=== PATIENT | male | born 1970 | race Caucasian/White ===

== ENCOUNTER → 2016-06-12 | Outpatient (CLI) | payer BC ==
[2016-06-12 08:03] LABS: MEAN CORPUSCULAR HEMOGLOBIN 30.5 pg (27.0-33.0); MEAN CORPUSCULAR HGB CONC 33.8 g/dl (32.0-36.5); PLATELET COUNT, AUTOMATED 277 k/mm3 (150-450); RED CELL DISTRIBUTION WIDTH 12.9 % (11.5-14.5); WHITE BLOOD COUNT 8.6 K/mm3 (4.0-10.0)
[2016-06-12 08:06] LABS: LYMPH % 20.7 % (24.0-44.0); NEUTROPHILS % 64.3 % (36.0-66.0)
[2016-06-12 08:07] LABS: BASO # 0.1 K/mm3 (0.0-0.2); BASO % 0.7 % (0.0-1.0); EOS # 0.4 K/mm3 (0.0-0.50); EOS % 5.1 % (0.0-3.0); LARGE UNSTAINED CELL # 0.2 K/mm3 (0.0-0.4); LARGE UNSTAINED CELL % 2.2 % (0.0-4.0); LYMPH # 1.8 K/mm3 (1.5-4.5); MONO # 0.6 K/mm3 (0.0-0.8); MONO % 7.1 % (0.0-5.0); NEUTROPHILS # 5.5 K/mm3 (1.8-7.7)
[2016-06-12 08:24] LABS: ALBUMIN 3.6 GM/DL (3.2-5.2); ALBUMIN/GLOBULIN RATIO 1.06 (1.00-1.93); ALKALINE PHOSPHATASE 67 U/L (45-117); ALT/SGPT 36 U/L (12-78); ANION GAP 9 MEQ/L (8-16); AST/SGOT 20 U/L (15-37); BILIRUBIN,TOTAL 0.3 MG/DL (0.2-1.0); BLOOD UREA NITROGEN 18 MG/DL (7-18); CALCIUM LEVEL 8.7 MG/DL (8.5-10.1); CARBON DIOXIDE LEVEL 28 MEQ/L (21-32); CHLORIDE LEVEL 105 MEQ/L (98-107); CHOLESTEROL LEVEL 162 MG/DL (<200); CREATININE FOR GFR 1.07 MG/DL (0.70-1.30); GLOMERULAR FILTRATION RATE > 60.0 (>60); GLUCOSE, FASTING 88 MG/DL (70-105); SODIUM LEVEL 142 MEQ/L (136-145); TRIGLYCERIDES LEVEL 178 MG/DL (<150)
== END ==
LOC: M LAB 06:45
PROVIDERS: ATTEND Family Medicine
DX: E78.2 Mixed hyperlipidemia (principal); E11.40 Type 2 diabetes mellitus with diabetic neuropathy, unspecified

== ENCOUNTER → 2016-09-18 | Outpatient (CLI) | payer BC ==
[2016-09-18 07:34] LABS: ALBUMIN 3.7 GM/DL (3.2-5.2); ALBUMIN/GLOBULIN RATIO 1.09 (1.00-1.93); ALKALINE PHOSPHATASE 70 U/L (45-117); ALT/SGPT 46 U/L (12-78); ANION GAP 9 MEQ/L (8-16); AST/SGOT 23 U/L (15-37); BILIRUBIN,TOTAL 0.4 MG/DL (0.2-1.0); BLOOD UREA NITROGEN 22 MG/DL (7-18); CALCIUM LEVEL 9.2 MG/DL (8.5-10.1); CARBON DIOXIDE LEVEL 28 MEQ/L (21-32); CHLORIDE LEVEL 104 MEQ/L (98-107); CREATININE FOR GFR 1.06 MG/DL (0.70-1.30); GLOMERULAR FILTRATION RATE > 60.0 (>60); GLUCOSE, FASTING 61 MG/DL (70-105); POTASSIUM SERUM 4.1 MEQ/L (3.5-5.1); SODIUM LEVEL 141 MEQ/L (136-145); TOTAL PROTEIN 7.1 GM/DL (6.4-8.2)
== END ==
LOC: M LAB 06:09
PROVIDERS: ATTEND Physician Assistant
DX: E11.40 Type 2 diabetes mellitus with diabetic neuropathy, unspecified (principal)

== ENCOUNTER → 2016-12-19 | Outpatient (CLI) | payer BC ==
[2016-12-19 07:20] LABS: BASO % 0.6 % (0.0-1.0); EOS # 0.3 K/mm3 (0.0-0.50); EOS % 4.1 % (0.0-3.0); LARGE UNSTAINED CELL # 0.2 K/mm3 (0.0-0.4); LARGE UNSTAINED CELL % 2.8 % (0.0-4.0); LYMPH # 1.8 K/mm3 (1.5-4.5); LYMPH % 22.3 % (24.0-44.0); MEAN CORPUSCULAR HEMOGLOBIN 31.8 pg (27.0-33.0); MEAN CORPUSCULAR HGB CONC 35.2 g/dl (32.0-36.5); MEAN CORPUSCULAR VOLUME 90.3 fl (80.0-96.0); MONO # 0.5 K/mm3 (0.0-0.8); MONO % 5.7 % (0.0-5.0); NEUTROPHILS # 5.1 K/mm3 (1.8-7.7); NEUTROPHILS % 64.4 % (36.0-66.0); PLATELET COUNT, AUTOMATED 288 k/mm3 (150-450); WHITE BLOOD COUNT 7.9 K/mm3 (4.0-10.0)
[2016-12-19 07:31] LABS: ALBUMIN 3.8 GM/DL (3.2-5.2); ALBUMIN/GLOBULIN RATIO 1.06 (1.00-1.93); ALKALINE PHOSPHATASE 62 U/L (45-117); ALT/SGPT 66 U/L (12-78); ANION GAP 10 MEQ/L (8-16); AST/SGOT 28 U/L (15-37); BILIRUBIN,TOTAL 0.5 MG/DL (0.2-1.0); BLOOD UREA NITROGEN 24 MG/DL (7-18); CALCIUM LEVEL 9.6 MG/DL (8.5-10.1); CARBON DIOXIDE LEVEL 26 MEQ/L (21-32); CHLORIDE LEVEL 106 MEQ/L (98-107); CHOLESTEROL LEVEL 132 MG/DL (<200); CREATININE FOR GFR 1.08 MG/DL (0.70-1.30); GLOMERULAR FILTRATION RATE > 60.0 (>60); GLUCOSE, FASTING 135 MG/DL (70-105); POTASSIUM SERUM 4.2 MEQ/L (3.5-5.1); SODIUM LEVEL 142 MEQ/L (136-145); TOTAL PROTEIN 7.4 GM/DL (6.4-8.2); TRIGLYCERIDES LEVEL 171 MG/DL (<150)
== END ==
LOC: M LAB 06:43
PROVIDERS: ATTEND Family Medicine
DX: E11.40 Type 2 diabetes mellitus with diabetic neuropathy, unspecified (principal)

== ENCOUNTER → 2017-03-20 | Outpatient (CLI) | payer BC ==
[2017-03-20 08:17] LABS: ANION GAP 9 MEQ/L (8-16); BLOOD UREA NITROGEN 16 MG/DL (7-18); CALCIUM LEVEL 9.2 MG/DL (8.5-10.1); CARBON DIOXIDE LEVEL 27 MEQ/L (21-32); CHLORIDE LEVEL 105 MEQ/L (98-107); CREATININE FOR GFR 1.02 MG/DL (0.70-1.30); GLOMERULAR FILTRATION RATE > 60.0 (>60); GLUCOSE, FASTING 141 MG/DL (70-105); POTASSIUM SERUM 4.2 MEQ/L (3.5-5.1); SODIUM LEVEL 141 MEQ/L (136-145)
== END ==
LOC: M LAB 06:53
PROVIDERS: ATTEND Physician Assistant
DX: E11.40 Type 2 diabetes mellitus with diabetic neuropathy, unspecified (principal)

== ENCOUNTER → 2017-06-25 | Outpatient (CLI) | payer BC ==
[2017-06-25 08:01] LABS: BASO # 0.1 10^3/uL (0.0-0.2); BASO % 0.8 % (0.0-1.0); EOS # 0.3 10^3/uL (0.0-0.50); EOS % 3.9 % (0.0-3.0); HEMATOCRIT 47.6 % (42.0-52.0); HEMOGLOBIN 16.3 g/dl (14.0-18.0); IMMATURE GRANULOCYTE % 0.4 % (0-3.0); LYMPH # 2.1 10^3/uL (1.5-4.5); LYMPH % 26.6 % (24.0-44.0); MEAN CORPUSCULAR HEMOGLOBIN 30.5 pg (27.0-33.0); MEAN CORPUSCULAR HGB CONC 34.2 g/dl (32.0-36.5); MONO # 0.8 10^3/uL (0.0-0.8); MONO % 10.1 % (0.0-5.0); NEUTROPHILS # 4.6 10^3/uL (1.8-7.7); NEUTROPHILS % 58.2 % (36.0-66.0); PLATELET COUNT, AUTOMATED 310 10^3/uL (150-450); RED BLOOD COUNT 5.35 10^6/uL (4.30-6.10); RED CELL DISTRIBUTION WIDTH 12.6 % (11.5-14.5); WHITE BLOOD COUNT 7.9 10^3/uL (4.0-10.0)
[2017-06-25 08:17] LABS: ALBUMIN 4.1 GM/DL (3.2-5.2); ALBUMIN/GLOBULIN RATIO 1.17 (1.00-1.93); ALKALINE PHOSPHATASE 67 U/L (45-117); ALT/SGPT 87 U/L (12-78); ANION GAP 9 MEQ/L (8-16); AST/SGOT 40 U/L (7-37); BILIRUBIN,TOTAL 0.6 MG/DL (0.2-1.0); BLOOD UREA NITROGEN 19 MG/DL (7-18); CALCIUM LEVEL 9.4 MG/DL (8.5-10.1); CARBON DIOXIDE LEVEL 26 MEQ/L (21-32); CHLORIDE LEVEL 106 MEQ/L (98-107); CREATININE FOR GFR 1.04 MG/DL (0.70-1.30); GLOMERULAR FILTRATION RATE > 60.0 (>60); GLUCOSE, FASTING 161 MG/DL (70-100); POTASSIUM SERUM 4.4 MEQ/L (3.5-5.1); SODIUM LEVEL 141 MEQ/L (136-145); TOTAL PROTEIN 7.6 GM/DL (6.4-8.2)
[2017-06-25 08:24] LABS: MALB URINE SIEMENS 41.8 MG/L; MAU/CREAT RATIO 39.4 MCG/MG (0.0-30.0)
[2017-06-25 09:26] LABS: ESTIMATED AVERAGE GLUCOSE 180 MG/DL (60-110); HEMOGLOBIN A1c 7.9 %
== END ==
LOC: M LAB 06:31
DX: E11.40 Type 2 diabetes mellitus with diabetic neuropathy, unspecified (principal)
CPT/HCPCS: 80053

== ENCOUNTER → 2017-09-19 | Outpatient (CLI) | payer BC ==
[2017-09-19 08:31] LABS: ANION GAP 12 MEQ/L (8-16); BLOOD UREA NITROGEN 29 MG/DL (7-18); CALCIUM LEVEL 9.1 MG/DL (8.5-10.1); CARBON DIOXIDE LEVEL 24 MEQ/L (21-32); CHLORIDE LEVEL 105 MEQ/L (98-107); CREATININE FOR GFR 1.23 MG/DL (0.70-1.30); GLOMERULAR FILTRATION RATE > 60.0 (>60); GLUCOSE, FASTING 179 MG/DL (70-100); POTASSIUM SERUM 4.3 MEQ/L (3.5-5.1); SODIUM LEVEL 141 MEQ/L (136-145)
[2017-09-19 10:01] LABS: ESTIMATED AVERAGE GLUCOSE 186 MG/DL (60-110); HEMOGLOBIN A1c 8.1 %
== END ==
LOC: M LAB 06:42
DX: E11.40 Type 2 diabetes mellitus with diabetic neuropathy, unspecified (principal)
CPT/HCPCS: 83036

== ENCOUNTER → 2017-12-24 | Outpatient (CLI) | payer BC ==
[2017-12-24 07:34] LABS: ESTIMATED AVERAGE GLUCOSE 180 MG/DL (60-110); HEMOGLOBIN A1c 7.9 %
[2017-12-24 07:54] LABS: ALBUMIN/GLOBULIN RATIO 1.11 (1.00-1.93); ALKALINE PHOSPHATASE 62 U/L (45-117); ALT/SGPT 96 U/L (12-78); ANION GAP 11 MEQ/L (8-16); AST/SGOT 43 U/L (7-37); BILIRUBIN,TOTAL 0.4 MG/DL (0.2-1.0); BLOOD UREA NITROGEN 30 MG/DL (7-18); CALCIUM LEVEL 9.4 MG/DL (8.5-10.1); CARBON DIOXIDE LEVEL 24 MEQ/L (21-32); CHLORIDE LEVEL 107 MEQ/L (98-107); CREATININE FOR GFR 1.23 MG/DL (0.70-1.30); GLOMERULAR FILTRATION RATE > 60.0 (>60); GLUCOSE, FASTING 177 MG/DL (70-100); POTASSIUM SERUM 4.2 MEQ/L (3.5-5.1); SODIUM LEVEL 142 MEQ/L (136-145); TOTAL PROTEIN 7.6 GM/DL (6.4-8.2)
== END ==
LOC: M LAB 06:53
DX: E11.40 Type 2 diabetes mellitus with diabetic neuropathy, unspecified (principal)
CPT/HCPCS: 80053

== ENCOUNTER → 2018-03-21 | Outpatient (CLI) | payer BC ==
[2018-03-21 08:25] LABS: ALBUMIN 3.9 GM/DL (3.2-5.2); BILIRUBIN,TOTAL 0.4 MG/DL (0.2-1.0); CHOLESTEROL RISK RATIO 4.212 (<5); CREATININE FOR GFR 1.38 MG/DL (0.70-1.30); FREE T4 1.06 NG/DL (0.76-1.46); GLOMERULAR FILTRATION RATE 58.8 (>60); POTASSIUM SERUM 4.4 MEQ/L (3.5-5.1); THYROID STIMULATING HORMONE 1.33 uIU/ML (0.358-3.740); TOTAL PROTEIN 7.3 GM/DL (6.4-8.2)
[2018-03-21 12:05] LABS: HEMOGLOBIN A1c 8.6 %
== END ==
LOC: M LAB 06:42
PROVIDERS: ATTEND Physician Assistant
DX: E11.40 Type 2 diabetes mellitus with diabetic neuropathy, unspecified (principal); E78.2 Mixed hyperlipidemia

== ENCOUNTER → 2018-06-18 | Outpatient (CLI) | payer BC ==
[2018-06-18 07:23] LABS: BLOOD UREA NITROGEN 22 MG/DL (7-18); CALCIUM LEVEL 9.4 MG/DL (8.5-10.1); CARBON DIOXIDE LEVEL 26 MEQ/L (21-32); CHLORIDE LEVEL 103 MEQ/L (98-107); CREATININE FOR GFR 1.23 MG/DL (0.70-1.30); GLOMERULAR FILTRATION RATE > 60.0 (>60); GLUCOSE, FASTING 179 MG/DL (70-100); SODIUM LEVEL 139 MEQ/L (136-145)
[2018-06-18 07:40] LABS: HEMOGLOBIN A1c 7.7 %
== END ==
LOC: M LAB 06:29
PROVIDERS: ATTEND Physician Assistant
DX: E11.40 Type 2 diabetes mellitus with diabetic neuropathy, unspecified (principal)

== ENCOUNTER → 2018-09-23 | Outpatient (CLI) | payer BC ==
[2018-09-23 07:47] LABS: ALT/SGPT 84 U/L (12-78); BILIRUBIN,TOTAL 0.4 MG/DL (0.2-1.0); BLOOD UREA NITROGEN 23 MG/DL (7-18); CALCIUM LEVEL 9.7 MG/DL (8.5-10.1); CARBON DIOXIDE LEVEL 25 MEQ/L (21-32); CHLORIDE LEVEL 105 MEQ/L (98-107); CREATININE FOR GFR 1.21 MG/DL (0.70-1.30); GLOMERULAR FILTRATION RATE > 60.0 (>60); GLUCOSE, FASTING 203 MG/DL (70-100); POTASSIUM SERUM 4.3 MEQ/L (3.5-5.1); SODIUM LEVEL 141 MEQ/L (136-145); TOTAL PROTEIN 7.5 GM/DL (6.4-8.2)
[2018-09-23 07:52] LABS: CREATININE, URINE 90.2 MG/DL; MALB URINE SIEMENS 16.9 MG/L; MAU/CREAT RATIO 18.7 MCG/MG (0.0-30.0)
[2018-09-23 08:15] LABS: HEMOGLOBIN A1c 7.8 %
== END ==
LOC: M LAB 06:48
PROVIDERS: ATTEND Family Medicine
DX: E11.40 Type 2 diabetes mellitus with diabetic neuropathy, unspecified (principal)

== ENCOUNTER → 2018-12-24 | Outpatient (CLI) | payer BC ==
[2018-12-24 07:16] LABS: HEMOGLOBIN A1c 7.7 %
[2018-12-24 07:27] LABS: BLOOD UREA NITROGEN 23 MG/DL (7-18); CALCIUM LEVEL 9.9 MG/DL (8.5-10.1); CARBON DIOXIDE LEVEL 25 MEQ/L (21-32); CHLORIDE LEVEL 104 MEQ/L (98-107); CREATININE FOR GFR 1.18 MG/DL (0.70-1.30); GLOMERULAR FILTRATION RATE > 60.0 (>60); GLUCOSE, FASTING 176 MG/DL (70-100); POTASSIUM SERUM 4.2 MEQ/L (3.5-5.1); SODIUM LEVEL 139 MEQ/L (136-145)
== END ==
LOC: M LAB 06:31
PROVIDERS: ATTEND Physician Assistant
DX: E11.40 Type 2 diabetes mellitus with diabetic neuropathy, unspecified (principal)

== ENCOUNTER → 2019-03-30 | Outpatient (CLI) | payer BC ==
[2019-03-30 07:53] LABS: ALT/SGPT 124 U/L (12-78); BILIRUBIN,TOTAL 0.5 MG/DL (0.2-1.0); BLOOD UREA NITROGEN 21 MG/DL (7-18); CALCIUM LEVEL 9.5 MG/DL (8.5-10.1); CARBON DIOXIDE LEVEL 25 MEQ/L (21-32); CHLORIDE LEVEL 103 MEQ/L (98-107); CREATININE FOR GFR 1.23 MG/DL (0.70-1.30); GLOMERULAR FILTRATION RATE > 60.0 (>60); GLUCOSE, FASTING 165 MG/DL (70-100); POTASSIUM SERUM 3.9 MEQ/L (3.5-5.1); SODIUM LEVEL 138 MEQ/L (136-145); TOTAL PROTEIN 7.3 GM/DL (6.4-8.2)
[2019-03-30 10:15] LABS: HEMOGLOBIN A1c 8.1 %
== END ==
LOC: M LAB 06:30
PROVIDERS: ATTEND Family Medicine
DX: E11.40 Type 2 diabetes mellitus with diabetic neuropathy, unspecified (principal)

== ENCOUNTER → 2019-07-06 | Outpatient (CLI) | payer BC ==
[2019-07-06 07:21] LABS: HEMOGLOBIN A1c 8.2 %
[2019-07-06 07:31] LABS: ALT/SGPT 121 U/L (12-78); BILIRUBIN,TOTAL 0.7 MG/DL (0.2-1.0); BLOOD UREA NITROGEN 24 MG/DL (7-18); CALCIUM LEVEL 9.1 MG/DL (8.5-10.1); CARBON DIOXIDE LEVEL 24 MEQ/L (21-32); CHLORIDE LEVEL 106 MEQ/L (98-107); CHOLESTEROL LEVEL 144 MG/DL (<200); CHOLESTEROL RISK RATIO 3.891 (<5); CREATININE FOR GFR 1.14 MG/DL (0.70-1.30); FREE T4 1.09 NG/DL (0.76-1.46); GLOMERULAR FILTRATION RATE > 60.0 (>60); GLUCOSE, FASTING 157 MG/DL (70-100); HDL CHOLESTEROL 37 MG/DL (>40); LDL CHOLESTEROL 60 MG/DL (<100); NON-HDL-C 107 MG/DL; POTASSIUM SERUM 4.1 MEQ/L (3.5-5.1); SODIUM LEVEL 139 MEQ/L (136-145); TOTAL PROTEIN 7.3 GM/DL (6.4-8.2); TRIGLYCERIDES LEVEL 233 MG/DL (<150)
== END ==
LOC: M LAB 06:27
PROVIDERS: ATTEND Physician Assistant
DX: E11.40 Type 2 diabetes mellitus with diabetic neuropathy, unspecified (principal); E78.2 Mixed hyperlipidemia

== ENCOUNTER → 2019-10-06 | Outpatient (CLI) | payer BC ==
[2019-10-06 06:55] LABS: BASO # 0.1 10^3/uL (0.0-0.2); BASO % 0.7 % (0.0-1.0); EOS # 0.3 10^3/uL (0.0-0.5); EOS % 3.5 % (0.0-3.0); HEMATOCRIT 47.6 % (42.0-52.0); HEMOGLOBIN 16.4 g/dl (13.5-17.5); LYMPH # 2.3 10^3/uL (1.5-5.0); MEAN CORPUSCULAR HEMOGLOBIN 30.9 pg (27.0-33.0); MEAN CORPUSCULAR HGB CONC 34.5 g/dl (32.0-36.5); MEAN CORPUSCULAR VOLUME 89.8 fl (80.0-96.0); MONO # 0.8 10^3/uL (0.0-0.8); MONO % 10.1 % (0.0-5.0); NEUTROPHILS # 4.6 10^3/uL (1.5-8.5); NEUTROPHILS % 57.3 % (36.0-66.0); PLATELET COUNT, AUTOMATED 270 10^3/uL (150-450); WHITE BLOOD COUNT 8.1 10^3/uL (4.0-10.0)
[2019-10-06 07:11] LABS: HEMOGLOBIN A1c 8.1 %
[2019-10-06 07:26] LABS: ALBUMIN 3.9 GM/DL (3.2-5.2); ALT/SGPT 95 U/L (12-78); BILIRUBIN,TOTAL 0.3 MG/DL (0.2-1.0); BLOOD UREA NITROGEN 27 MG/DL (7-18); CALCIUM LEVEL 9.4 MG/DL (8.5-10.1); CARBON DIOXIDE LEVEL 25 MEQ/L (21-32); CHLORIDE LEVEL 105 MEQ/L (98-107); CHOLESTEROL LEVEL 161 MG/DL (<200); CHOLESTEROL RISK RATIO 4.735 (<5); CREATININE FOR GFR 1.25 MG/DL (0.70-1.30); GLOMERULAR FILTRATION RATE > 60.0 (>60); GLUCOSE, FASTING 197 MG/DL (70-100); HDL CHOLESTEROL 34 MG/DL (>40); LDL CHOLESTEROL 51 MG/DL (<100); NON-HDL-C 127 MG/DL; SODIUM LEVEL 139 MEQ/L (136-145); TOTAL PROTEIN 7.3 GM/DL (6.4-8.2); TRIGLYCERIDES LEVEL 382 MG/DL (<150)
[2019-10-06 07:37] LABS: CREATININE, URINE 82.3 MG/DL; MALB URINE SIEMENS 9.5 MG/L; MAU/CREAT RATIO 11.5 MCG/MG (0.0-30.0)
== END ==
LOC: M LAB 06:27
PROVIDERS: ATTEND Family Medicine
DX: E11.40 Type 2 diabetes mellitus with diabetic neuropathy, unspecified (principal); E78.2 Mixed hyperlipidemia

== ENCOUNTER → 2020-01-13 | Outpatient (CLI) | payer BC ==
[2020-01-13 08:28] LABS: BLOOD UREA NITROGEN 19 MG/DL (7-18); CALCIUM LEVEL 9.3 MG/DL (8.5-10.1); CARBON DIOXIDE LEVEL 26 MEQ/L (21-32); CHLORIDE LEVEL 104 MEQ/L (98-107); CREATININE FOR GFR 1.15 MG/DL (0.70-1.30); GLOMERULAR FILTRATION RATE > 60.0 (>60); GLUCOSE, FASTING 138 MG/DL (70-100); POTASSIUM SERUM 4.3 MEQ/L (3.5-5.1); SODIUM LEVEL 139 MEQ/L (136-145)
[2020-01-13 09:47] LABS: HEMOGLOBIN A1c 7.8 %
== END ==
LOC: M LAB 06:29
PROVIDERS: ATTEND Physician Assistant
DX: E11.40 Type 2 diabetes mellitus with diabetic neuropathy, unspecified (principal)

== ENCOUNTER → 2020-04-18 | Outpatient (CLI) | payer BC ==
[2020-04-18 07:02] LABS: BASO # 0.1 10^3/uL (0.0-0.2); BASO % 0.8 % (0.0-1.0); EOS # 0.3 10^3/uL (0.0-0.5); EOS % 3.2 % (0.0-3.0); HEMATOCRIT 49.7 % (42.0-52.0); HEMOGLOBIN 16.3 g/dl (13.5-17.5); LYMPH # 2.9 10^3/uL (1.5-5.0); LYMPH % 34.3 % (24.0-44.0); MEAN CORPUSCULAR HEMOGLOBIN 30.2 pg (27.0-33.0); MEAN CORPUSCULAR HGB CONC 32.8 g/dl (32.0-36.5); MEAN CORPUSCULAR VOLUME 92.2 fl (80.0-96.0); MONO # 0.9 10^3/uL (0.0-0.8); MONO % 10.4 % (0.0-5.0); NEUTROPHILS # 4.2 10^3/uL (1.5-8.5); NEUTROPHILS % 50.7 % (36.0-66.0); PLATELET COUNT, AUTOMATED 242 10^3/uL (150-450); RED BLOOD COUNT 5.39 10^6/uL (4.30-6.10); WHITE BLOOD COUNT 8.4 10^3/uL (4.0-10.0)
[2020-04-18 07:15] LABS: HEMOGLOBIN A1c 8.8 %
[2020-04-18 07:30] LABS: ALT/SGPT 98 U/L (12-78); BILIRUBIN,TOTAL 0.5 MG/DL (0.2-1.0); BLOOD UREA NITROGEN 23 MG/DL (7-18); CALCIUM LEVEL 9.9 MG/DL (8.5-10.1); CARBON DIOXIDE LEVEL 26 MEQ/L (21-32); CHLORIDE LEVEL 104 MEQ/L (98-107); CREATININE FOR GFR 1.21 MG/DL (0.70-1.30); GLOMERULAR FILTRATION RATE > 60.0 (>60); GLUCOSE, FASTING 187 MG/DL (70-100); POTASSIUM SERUM 4.3 MEQ/L (3.5-5.1); SODIUM LEVEL 138 MEQ/L (136-145); TOTAL PROTEIN 7.2 GM/DL (6.4-8.2)
== END ==
LOC: M LAB 06:23
PROVIDERS: ATTEND Family Medicine
DX: E11.40 Type 2 diabetes mellitus with diabetic neuropathy, unspecified (principal)

== ENCOUNTER → 2020-08-05 | Outpatient (CLI) | payer BC ==
[2020-08-05 07:38] LABS: ALBUMIN 4.2 GM/DL (3.2-5.2); ALT/SGPT 104 U/L (12-78); BILIRUBIN,TOTAL 0.6 MG/DL (0.2-1.0); BLOOD UREA NITROGEN 20 MG/DL (7-18); CALCIUM LEVEL 10.3 MG/DL (8.5-10.1); CARBON DIOXIDE LEVEL 28 MEQ/L (21-32); CHLORIDE LEVEL 105 MEQ/L (98-107); CHOLESTEROL LEVEL 153 MG/DL (<200); CHOLESTEROL RISK RATIO 3.923 (<5); CREATININE FOR GFR 1.08 MG/DL (0.70-1.30); GLOMERULAR FILTRATION RATE > 60.0 (>60); GLUCOSE, FASTING 152 MG/DL (70-100); HDL CHOLESTEROL 39 MG/DL (>40); LDL CHOLESTEROL 59 MG/DL (<100); NON-HDL-C 114 MG/DL; POTASSIUM SERUM 4.3 MEQ/L (3.5-5.1); SODIUM LEVEL 139 MEQ/L (136-145); TOTAL PROTEIN 7.3 GM/DL (6.4-8.2); TRIGLYCERIDES LEVEL 276 MG/DL (<150)
[2020-08-05 07:40] LABS: HEMOGLOBIN A1c 7.7 %
== END ==
LOC: M LAB 06:17
PROVIDERS: ATTEND Physician Assistant
DX: E11.40 Type 2 diabetes mellitus with diabetic neuropathy, unspecified (principal)

== ENCOUNTER → 2020-08-23 | Outpatient (CLI) | payer BC ==
--- NOTE | 2020-08-23 08:53 | REP ---
INDICATION: ELEVATED LFT'S COMPARISON: None. TECHNIQUE: Real time gil scale ultrasound examination using curved array transducer. FINDINGS: Liver is mildly enlarged measuring 19.5 cm in craniocaudal length and increased in echotexture suggesting fatty infiltration. No focal hepatic lesion identified. The pancreas is incompletely evaluated but visualized portions appear normal. Gallbladder is normal and without gallstones, wall thickening, or pericholecystic fluid. No obvious biliary ductal dilatation is appreciated although the common bile duct is incompletely evaluated due to interposed bowel gas. The right kidney is normal in reniform shape without hydronephrosis and measures 13.6 x 7.7 x 7.0 cm. No ascites. IMPRESSION: Hepatomegaly and hepatosteatosis. <Electronically signed by Duran Jenkins > 08/23/20 0375
== END ==
LOC: M RAD 08:16
PROVIDERS: ATTEND Family Medicine
DX: R74.01 Elevation of levels of liver transaminase levels (principal); R16.0 Hepatomegaly, not elsewhere classified

== ENCOUNTER → 2020-11-02 | Outpatient (CLI) | payer BC ==
[2020-11-02 07:49] LABS: ALBUMIN 4.2 GM/DL (3.2-5.2); ALT/SGPT 86 U/L (12-78); BILIRUBIN,TOTAL 0.5 MG/DL (0.2-1.0); BLOOD UREA NITROGEN 19 MG/DL (7-18); CALCIUM LEVEL 9.6 MG/DL (8.5-10.1); CARBON DIOXIDE LEVEL 27 MEQ/L (21-32); CHLORIDE LEVEL 105 MEQ/L (98-107); CHOLESTEROL LEVEL 153 MG/DL (<200); CHOLESTEROL RISK RATIO 4.135 (<5); CREATININE FOR GFR 1.17 MG/DL (0.70-1.30); FREE T4 0.94 NG/DL (0.76-1.46); GLOMERULAR FILTRATION RATE > 60.0 (>60); GLUCOSE, FASTING 179 MG/DL (70-100); HDL CHOLESTEROL 37 MG/DL (>40); LDL CHOLESTEROL 50 MG/DL (<100); NON-HDL-C 116 MG/DL; POTASSIUM SERUM 4.2 MEQ/L (3.5-5.1); SODIUM LEVEL 141 MEQ/L (136-145); TOTAL PROTEIN 7.5 GM/DL (6.4-8.2); TRIGLYCERIDES LEVEL 329 MG/DL (<150)
[2020-11-02 08:04] LABS: PTH INTACT 33.1 PG/ML (18.5-88.0)
== END ==
LOC: M LAB 06:43
PROVIDERS: ATTEND Family Medicine
DX: E83.52 Hypercalcemia (principal); E78.2 Mixed hyperlipidemia; E11.40 Type 2 diabetes mellitus with diabetic neuropathy, unspecified

== ENCOUNTER 2021-01-25 07:56 | Emergency (ER) | payer BC ==
[~2021-01-25 07:56] MED LIST: EPINEPHrine 1MG/10ML SYRINGE 1.5IN ONE; SODIUM BICARBONATE 8.4% INJ 50MEQ 50 ML VIAL ONE
[2021-01-25] MEDS ORDERED: EPINEPHrine 1MG/10ML SYRINGE 1.5IN IV STA (08:00)
--- OUTSIDE RECORDS SUMMARY | 2021-01-25 08:01 | CCD | Continuity of Care Document ---
Author Author Tony TURCIOS [place] Organization Unknown Address [address] [facility] [address] [place] [address] Phone [phone] Care Team Providers Care Chief Digital Media Officer Name Role Phone Nedra Haywood D.O. AUTM Dominick Gaspar MD AUTM [phone] Problems Active Problems Provider Date Essential hypertension Nedra Haywood D.O. Onset: 11/2013 Pure hypercholesterolemia Nedra Haywood D.O. Onset: 03/09/2014 Type II diabetes mellitus uncontrolled Nedra Haywood D.O. Onset: 03/09/2014 Hyperlipidemia Nedra Haywood D.O. Onset: 2013 Allergic rhinitis Nedra Haywood D.O. Onset: 2013 Morbid obesity Nedra Haywood D.O. Onset: 2013 Obstructive sleep apnea syndrome Nedra Haywood D.O. Onset: 03/09/2014 Periodic limb movement disorder Nedra Haywood D.O. O nset: 03/09/2014 Disorder of nervous system due to diabetes mellitus Nedra Whitaker D.O. Onset: 03/09/2014 Chronic kidney disease stage 1 Nedra Haywood D.O. On set: 06/08/2014 Chronic kidney disease stage 3 Nedra Haywood D.O. On set: 06/08/2014 Disorder of magnesium metabolism Nedra Haywood D.O. Onset: 09/08/2014 Deficiency anemias Nedra Haywood D.O. Onset: 2014 Nonproliferative diabetic retinopathy Nedra Haywood D.O. Onset: 04/24/2015 Tubular adenoma Nedra Haywood D.O. Onset: 2015 Note: Colonoscopy 05/2014-Dr. Shannon Long-term current use of insulin Nedra Haywood D.O. Onset: 06/20/2015 Body mass index 40+ - severely obese Shaun Disla Onset: 06/20/2015 Mixed hyperlipidemia Nedra Haywood D.O. Onset: 06/19 Gastroesophageal reflux disease Nedra Haywood D.O. O nset: 06/20/2015 Social History Type Date Description Comments Sex Unknown ETOH Use Currently consumes alcohol 4 per week socially Tobacco Use Start: Unknown Patient has never smoked Recreational Drug Use Denies Drug Use Smoking Status Reviewed: 11/10/20 Patient has never smoked Exercise Type/Frequency Does not exercise Sun Exposure Uses sunscreen Seat Belt/Car Seat Always uses seat belt Allergies, Adverse Reactions, Alerts Description No Known Drug Allergies Medications Active Medications SIG Qnty Indications Ordering Provide r Date Ozempic (1 MG/Dose) 2mg/1.5ML Solution Pen-Inject Inject 1MG Under The Skin Once A Week 9units E11.40 Nedra Haywood D.O. 12/29/2018 Valsartan-Hydrochlorothiazide 320-25mg Tablets take one tablet by mouth every day 90tabs I12.9 Ilana LuongOJuan Carlos 03/06/2017 Novofine Plus 32G X 4 mm Misc Use With Lantus Pen Twice Daily 300units Ilana DislaO Juan Carlos 10/03/2016 Pen Turner 3/16" 31G X 5 mm Misc use with victoza daily 30units E11.40 Ilana DislaOJuan Carlos 03/22 BD Ultra-Fine Pen NDL [id number] Use With Lantus Pen Two Times A Day 1 00units Nedra Haywood D.O. 10/02/2015 Tresiba Flextouch 20 0Unit/ML Solution Pen-Inject Inject 124 Units Under The Skin Once Daily 54units E11.4 0 CASANDRA Cisneros 09/23/2015 Farxiga 10mg Tablets take one tablet by mouth every day 90tabs Shaun Disla.OJuan Carlos 03/16 Fexofenadine HCL 180mg Tablets take one tablet by mouth every day 90tabs Ilana DislaOJuan Carlos 03/04/2015 Magnesium Oxide 400(240Mg) mg Tabl ets 1 tab by mouth a day 30tabs 275.2 Ilana DislaOJuan Carlos Bdu Ultrafine Pen Turner use with lantus solostar pen twice a day 1Box Ilana DislaOJuan Carlos 03/09/2014 Aspirin 81mg Tablets 1 by mouth every day 30tabs Unknown Vitamin C 1000mg Tablets 1 po qd Unknown Multivitamins Capsules 1 by mouth every day 30caps Unknown Atorvastatin Calcium 10mg Tablets Take One Tablet By Mouth Every Evening 90tabs Nedra estevez, D.OJuan Carlos Metformin HCL 1000mg Tablets take one tablet by mouth every day with breakfast and dinner 180tabs Ilana GeorgeOJuan Carlos Famotidine 20mg Tablets take 1 by mouth twice daily. Unknown Immunizations Description No Information Available Vital Signs Date Vital Result Comment 11/10/2020 3:55pm BP Systolic 142 mmHg BP Diastolic 88 mmHg Height 71.5 inches 5'11.50" Weight 289.00 lb BMI (Body Mass Index) 39.7 kg/m2 Heart Rate 84 /min Respiratory Rate 18 /min Body Temperature 97.7 F O2 % BldC Oximetry 98 % [place] Body Weight 172 lb 08/09/2020 3:54pm BP Systolic 130 mmHg BP Diastolic 78 mmHg Height 71.5 inches 5'11.50" Weight 291.25 lb BMI (Body Mass Index) 40.1 kg/m2 Heart Rate 92 /min Respiratory Rate 18 /min Body Temperature 97.4 F O2 % BldC Oximetry 98 % [place] Body Weight 172 lb Results Test Acquired Date Facility Test Result H/L Range Note Laboratory test finding 11/02/[address] [address] [phone] PTH Intact 33.1 pg/mL Normal 18.5-88.0 Comprehensive Metabolic Profil 11/02/[address] [address] [phone] Glucose, Fasting 179 mg/dL High 70-100 Blood Urea Nitrogen 19 mg/dL High 7-18 Creatinine For GFR 1.17 mg/dL Normal 0.70-1.30 Glomerular Filtration Rate > 60.0 Normal >60 1 Sodium Level 141 mEq/L Normal 136-145 Potassium Serum 4.2 mEq/L Normal 3.5-5.1 Chloride Level 105 mEq/L Normal 98-107 Carbon Dioxide Level 27 mEq/L Normal 21-32 Anion Gap 9 mEq/L Normal 8-16 Calcium Level 9.6 mg/dL Normal 8.5-10.1 Ast/Sgot 38 U/L High 7-37 Alt/SGPT 86 U/L High 12-78 Alkaline Phosphatase 65 U/L Normal 45-117 Bilirubin,Total 0.5 mg/dL Normal 0.2-1.0 Total Protein 7.5 GM/DL Normal 6.4-8.2 Albumin 4.2 GM/DL Normal 3.2-5.2 Albumin/Globulin Ratio 1.3 Normal Lipid Panel 11/02/[address] [address] [phone] Triglycerides Level 329 mg/dL High <150 Cholesterol Level 153 mg/dL Normal <200 HDL Cholesterol 37 mg/dL Low >40 LDL Cholesterol 50 mg/dL Normal <100 Non-HDL-C 116 mg/dL Normal Cholesterol Risk Ratio 4.135 Normal <5 Hemoglobin A1c 11/02/[address] [address] [phone] Hemoglobin A1c 8.0 % Normal 2 Estimated Average Glucose 183 mg/dL High 60-110 FT4&TSH Panel 11/02/[address] [address] [phone] Thyroid Stimulating Hormone 1.640 uIU/ML Normal 0. 358-3.740 Free T4 0.94 ng/dL Normal 0.76-1.46 Laboratory test finding 11/02/[address] [address] [phone] Hepatitis C Antibody <pending> Laboratory test finding 11/02/[address] [address] [phone] Hepatitis A Antibody Igm <pending> Hepatitis A Igg <pending> Hemoglobin A1c 08/05/2020 [facility] Outpatient Testi ng (Registration) [address] [place] [address] [phone] Hemoglobin A1c 7.7 % Normal 3 Estimated Average Glucose 174 mg/dL High 60-110 Comprehensive Metabolic Profil 08/05/2020 [facility] Outpa tient Testing (Registration) [address] [place] [address] [phone] Glucose, Fasting 152 mg/dL High 70-100 Blood Urea Nitrogen 20 mg/dL High 7-18 Creatinine For GFR 1.08 mg/dL Normal 0.70-1.30 Glomerular Filtration Rate > 60.0 Normal >60 4 Sodium Level 139 mEq/L Normal 136-145 Potassium Serum 4.3 mEq/L Normal 3.5-5.1 Chloride Level 105 mEq/L Normal 98-107 Carbon Dioxide Level 28 mEq/L Normal 21-32 Anion Gap 6 mEq/L Low 8-16 Calcium Level 10.3 mg/dL High 8.5-10.1 Ast/Sgot 47 U/L High 7-37 Alt/SGPT 104 U/L High 12-78 Alkaline Phosphatase 59 U/L Normal 45-117 Bilirubin,Total 0.6 mg/dL Normal 0.2-1.0 Total Protein 7.3 GM/DL Normal 6.4-8.2 Albumin 4.2 GM/DL Normal 3.2-5.2 Albumin/Globulin Ratio 1.4 Normal Lipid Panel 08/05/2020 [facility] Outpatient Testi ng (Registration) [address] [place] [address] [phone] Triglycerides Level 276 mg/dL High <150 Cholesterol Level 153 mg/dL Normal <200 HDL Cholesterol 39 mg/dL Low >40 LDL Cholesterol 59 mg/dL Normal <100 Non-HDL-C 114 mg/dL Normal Cholesterol Risk Ratio 3.923 Normal <5 FT4&TSH Panel 08/05/2020 [facility] Outpatient Testi ng (Registration) [address] [place] [address] [phone] Thyroid Stimulating Hormone 1.290 uIU/ML Normal 0. 358-3.740 Free T4 1.00 ng/dL Normal 0.76-1.46 1 Units are mL/min/1.73 m2 Chronic Kidney Disease Staging per NKF: Stage I & II GFR >=60 Normal to Mildly Decreased Stage III GFR 30-59 Moderately Decreased Stage IV GFR 15-29 Severely Decreased Stage V GFR <15 Very Little GFR Left ESRD GFR <15 on OPERATION SHIFT SUPERVISOR 2 REFERENCE RANGES: <=5.6% NORMAL 5.7-6.4% SUGGESTS IMPAIRED GLUCOSE META BOLISM/PREDIABETIC >= 6.5% ABNORMAL 3 REFERENCE RANGES: <=5.6% NORMAL 5.7-6.4% SUGGESTS IMPAIRED GLUCOSE META BOLISM/PREDIABETIC >= 6.5% ABNORMAL 4 Units are mL/min/1.73 m2 Chronic Kidney Disease Staging per NKF: Stage I & II GFR >=60 Normal to Mildly Decreased Stage III GFR 30-59 Moderately Decreased Stage IV GFR 15-29 Severely Decreased Stage V GFR <15 Very Little GFR Left ESRD GFR <15 on OPERATION SHIFT SUPERVISOR Procedures Date Code Description Status 11/10/2020 87022 Office/Outpatient Established Mo d MDM 30-39 Min Completed 08/09/2020 84251 Office/Outpatient Established Mo d MDM 30-39 Min Completed Medical Devices Description No Information Available Encounters Type Date Location Provider Dx Diagnosis Office Visit 11/10/2020 4:00p [facility] CASANDRA Cisneros E11.40 Type 2 diabetes mellitus wit h diabetic neuropathy, unsp E78.2 Mixed hyperlipidemia K21.9 Gastro-esophageal reflux dis ease without esophagitis J30.9 Allergic rhinitis, unspecifi ed E66.01 Morbid (severe) obesity due to excess calories Z68.39 Body mass index [BMI] 39.0-3 9.9, adult Office Visit 08/09/2020 4:00p [facility] Nedra Haywood D.O. 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 E83.52 Hypercalcemia R74.01 Elevation of levels of liver transaminase levels Z68.41 Body mass index [BMI] 40.0-4 4.9, adult Assessments Date Code Description Provider 11/10/2020 E11.40 Type 2 diabetes mellitus with di abetic neuropathy, unspecifi CASANDRA Cisneros 11/10/2020 E78.2 Mixed hyperlipidemia CASANDRA Mcdermott 11/10/2020 K21.9 Gastro-esophageal reflux disease without esophagitis CASANDRA Cisneros 11/10/2020 J30.9 Allergic rhinitis, unspecified S CASANDRA Key 11/10/2020 E66.01 Morbid (severe) obesity due to e xcess calories CASANDRA Cisneros 11/10/2020 Z68.39 Body mass index [BMI] 39.0-39.9, adult CASANDRA Cisneros 08/09/2020 E11.40 Type 2 diabetes mellitus with di abetic neuropathy, unspecifi Nedra Khannano-Howard, D.O. 08/09/2020 E78.2 Mixed hyperlipidemia Nedra Abreuea no-Howard, D.O. 08/09/2020 K21.9 Gastro-esophageal reflux disease without esophagitis Nedra Abreueano-Howard, D.O. 08/09/2020 J30.9 Allergic rhinitis, unspecified J ill Pilo-Howard, D.O. 08/09/2020 E66.01 Morbid (severe) obesity due to e xcess calories Nedra Abreueano- Howard, D.O. 08/09/2020 Z79.899 Other intermediate (current) drug t herapy Nedra Abreueano-Howard, D.O. 08/09/2020 Z79.82 residential (current) use of aspir in Nedra Richard Haywood 08/09/2020 Z79.4 medical office technician (current) use of insul in Nedra Haywood D.O. 08/09/2020 E11.22 Type 2 diabetes mellitus with di abetic chronic kidney diseas Nedra Haywood D.O. 08/09/2020 E83.52 Hypercalcemia Nedra werner D.O. 08/09/2020 R74.01 Elevation of levels of liver tra nsaminase levels Nedra Haywood D.O. 08/09/2020 Z68.41 Body mass index [BMI]40.0-44.9, adult Nedra Haywood D.O. Plan of Treatment Future Appointment(s):* 02/01/2021 3:40 pm - Nedra Haywood D.O. at [facility] 11/10/2020 - CASANDRA Cisneros* E11.40 Type 2 diabetes mellitus with diabetic neuropathy, unspecifi* New Labs:* Basic Metabolic Profile, Scheduled: 02/10/21 * Hemoglobin A1c, Scheduled: 02/10/21 * Microalbumin Random, Scheduled: 02/10/21 * Comments:* Blood sugars are worse than they had been previously. Continue to make good dietary choices, and adjust your insulin accordingly. * E78.2 Mixed hyperlipidemia* Comments:* Continue atorvastatin as prescribed. * K21.9 Gastro-esophageal reflux disease without esophagitis* Comments:* Stable with your current regimen. * J30.9 Allergic rhinitis, unspecified* Comments:* Stable with current medication. * E66.01 Morbid (severe) obesity due to excess calories* Comments:* Continue to make good dietary choices, and we will discuss further at followup. * Z68.39 Body mass index [BMI] 39.0-39.9, adult Functional Status Description No Information Available Mental Status Description No Information Available Referrals Description No Information Available
--- OUTSIDE RECORDS SUMMARY | 2021-01-25 08:01 | CCD | Continuity of Care Document ---
Author Author Tony TURCIOS [place] Organization Unknown Address [address] [facility] [address] [place] [address] Phone [phone] Care Team Providers Care Art Conservator Name Role Phone Nedra Haywood D.O. AUTM Dominick Gaspar MD AUTM [phone] Problems Active Problems Provider Date Essential hypertension [...] 300units Ilana DislaO Juan Carlos 10/03/2016 Pen Raymond 3/16" 31G X 5 mm Misc use with victoza daily 30units E11.40 Ilana DislaOJuan Carlos 03/22 BD Ultra-Fine Pen NDL [id number] Use With Lantus Pen Two Times A Day 1 00units Nedra Haywood D.O. 10/02/2015 Tresiba Flextouch 20 0Unit/ML Solution Pen-Inject Inject 124 Units Under The Skin Once Daily 54units E11.4 0 CASANDAR Cisneros 09/23/2015 Farxiga 10mg Tablets take one tablet by mouth every day 90tabs Shaun Disla.OJuan Carlos 03/16 Fexofenadine HCL 180mg Tablets take one tablet by mouth every day 90tabs Ilana DislaOJuan Carlos 03/04/2015 Magnesium Oxide 400(240Mg) mg Tabl ets 1 tab by mouth a day 30tabs 275.2 Ilana DislaOJuan Carlos Bdu Ultrafine Pen Raymond use with lantus solostar pen twice a [...] F O2 % BldC Oximetry 98 % [place] Body Weight 172 lb 08/09/2020 3:54pm BP Systolic 130 mmHg BP Diastolic 78 mmHg Height 71.5 inches 5'11.50" Weight 291.25 lb BMI (Body Mass Index) 40.1 kg/m2 Heart Rate 92 /min Respiratory Rate 18 /min Body Temperature 97.4 F O2 % BldC Oximetry 98 % [place] Body Weight 172 lb Results Test Acquired Date Facility Test Result H/L Range Note Laboratory test finding 11/02/[address] [address] [phone] PTH Intact 33.1 pg/mL Normal 18.5-88.0 Comprehensive Metabolic Profil 11/02/[address] [address] [phone] Glucose, Fasting 179 mg/dL High 70-100 Blood [...] Albumin/Globulin Ratio 1.3 Normal Lipid Panel 11/02/[address] [address] [phone] Triglycerides Level 329 mg/dL High <150 Cholesterol Level 153 mg/dL Normal <200 HDL Cholesterol 37 mg/dL Low >40 LDL Cholesterol 50 mg/dL Normal <100 Non-HDL-C 116 mg/dL Normal Cholesterol Risk Ratio 4.135 Normal <5 Hemoglobin A1c 11/02/[address] [address] [phone] Hemoglobin A1c 8.0 % Normal 2 Estimated Average Glucose 183 mg/dL High 60-110 FT4&TSH Panel 11/02/[address] [address] [phone] Thyroid Stimulating Hormone 1.640 uIU/ML Normal 0. 358-3.740 Free T4 0.94 ng/dL Normal 0.76-1.46 Laboratory test finding 11/02/[address] [address] [phone] Hepatitis C Antibody <pending> Laboratory test finding 11/02/[address] [address] [phone] Hepatitis A Antibody Igm <pending> Hepatitis A Igg <pending> Hemoglobin A1c 08/05/2020 [facility] Outpatient Testi ng (Registration) [address] [place] [address] [phone] Hemoglobin A1c 7.7 % Normal 3 Estimated Average Glucose 174 mg/dL High 60-110 Comprehensive Metabolic Profil 08/05/2020 [facility] Outpa tient Testing (Registration) [address] [place] [address] [phone] Glucose, Fasting 152 mg/dL High 70-100 Blood [...] Albumin/Globulin Ratio 1.4 Normal Lipid Panel 08/05/2020 [facility] Outpatient Testi ng (Registration) [address] [place] [address] [phone] Triglycerides Level 276 mg/dL High <150 Cholesterol Level 153 mg/dL Normal <200 HDL Cholesterol 39 mg/dL Low >40 LDL Cholesterol 59 mg/dL Normal <100 Non-HDL-C 114 mg/dL Normal Cholesterol Risk Ratio 3.923 Normal <5 FT4&TSH Panel 08/05/2020 [facility] Outpatient Testi ng (Registration) [address] [place] [address] [phone] Thyroid Stimulating Hormone 1.290 uIU/ML Normal 0. 358-3.740 Free T4 1.00 ng/dL Normal 0.76-1.46 1 Units are mL/min/1.73 m2 Chronic Kidney Disease Staging per NKF: Stage I & II GFR >=60 Normal to Mildly Decreased Stage III GFR 30-59 Moderately Decreased Stage IV GFR 15-29 Severely Decreased Stage V GFR <15 Very Little GFR Left ESRD GFR <15 on PACKING TRACTOR MACHINE OPERATOR 2 REFERENCE RANGES: <=5.6% NORMAL 5.7-6.4% SUGGESTS [...] Little GFR Left ESRD GFR <15 on PACKING TRACTOR MACHINE OPERATOR Procedures Date Code Description Status 08/09/2020 09184 Office/Outpatient Established Mo d MDM 30-39 Min Completed Medical Devices Description No Information Available Encounters Type Date Location Provider Dx Diagnosis Office Visit 08/09/2020 4:00p [facility] Nedra Haywood D.O. 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 E83.52 Hypercalcemia R74.01 Elevation of levels of liver transaminase levels Z68.41 Body mass index [BMI] 40.0-4 4.9, adult Assessments Date Code Description Provider 11/10/2020 E11.40 Type 2 diabetes mellitus with di abetic neuropathy, unspecifi Ha Turcios, CASANDRA 11/10/2020 E78.2 Mixed hyperlipidemia Ha stewart, CASANDRA 11/10/2020 K21.9 Gastro-esophageal reflux disease without esophagitis Ha Turcios, CASANDRA 11/10/2020 J30.9 Allergic rhinitis, unspecified S christi Turcios, CASANDRA 11/10/2020 E66.01 Morbid (severe) obesity due to e xcess calories CASANDRA Cisneros 11/10/2020 Z68.39 Body mass index [BMI] 39.0-39.9, adult CASANDRA Cisneros 08/09/2020 E11.40 Type 2 diabetes mellitus with di abetic neuropathy, unspecifi Nedra Haywood, D.O. 08/09/2020 E78.2 Mixed hyperlipidemia Nedra Khanna noLois, D.O. 08/09/2020 K21.9 Gastro-esophageal reflux disease without esophagitis Nedra Haywood, D.O. 08/09/2020 J30.9 Allergic rhinitis, unspecified J carson Haywood, D.O. 08/09/2020 E66.01 Morbid (severe) obesity due to e xcess calories Nedra Lawrence, D.O. 08/09/2020 Z79.899 Other intermodal owner operator truck driver (current) drug t herapy Nedra Haywood, D.O. 08/09/2020 Z79.82 assisted (current) use of aspir in Nedra Daigle-Howard, D.O. 08/09/2020 Z79.4 assisted (current) use of insul in Nedra Haywood, D.O. 08/09/2020 E11.22 Type 2 diabetes mellitus with di abetic chronic kidney diseas Nedra Haywood, D.O. 08/09/2020 E83.52 Hypercalcemia Nedra werner, D.O. 08/09/2020 R74.01 Elevation of levels of liver tra nsaminase levels Nedragem Haywood D.O. 08/09/2020 Z68.41 Body mass index [BMI]40.0-44.9, adult Nedra Haywood D.O. Plan of Treatment Future Appointment(s):* 02/01/2021 3:40 pm - Nedra Haywood D.O. at [facility] 11/10/2020 - CASANDRA Cisneros* E11.40 Type 2 diabetes mellitus with diabetic neuropathy, unspecifi* New Labs:* Basic Metabolic Profile, Scheduled: 02/10/21 * Hemoglobin A1c, Scheduled: 02/10/21 * Comments:* Blood sugars are [...]
--- OUTSIDE RECORDS SUMMARY | 2021-01-25 08:02 | CCD ---
Author Author [facility] Organization [facility] Address Unknown Phone Unavailable Care Team Providers Care Mesh Worker Name Role Phone Kim, Ha PA Unavailable Unavailable Kim, Ha PA Unavailable Unavailable Kim, Ha PA Unavailable Unavailable Kim, Ha PA Unavailable Unavailable Kim, Ha PA Unavailable Unavailable Kim, Ha PA Unavailable Unavailable Kim, Ha PA Unavailable Unavailable Kim, Ha PA Unavailable Unavailable Kim, Ha PA Unavailable Unavailable Kim, Ha PA Unavailable Unavailable Kim, Ha PA Unavailable Unavailable Kim, Ha PA Unavailable Unavailable Kim, Ha PA Unavailable Unavailable Kim, Ha PA Unavailable Unavailable Kim, Ha PA Unavailable Unavailable Kim, Ha PA Unavailable Unavailable Kim, Ha PA Unavailable Unavailable Kim, Ha PA Unavailable Unavailable Kim, Ha PA Unavailable Unavailable Kim, Ha PA Unavailable Unavailable Kim, Ha PA Unavailable Unavailable Kim, Ha PA Unavailable Unavailable Kim, Ha PA Unavailable Unavailable Kim, Ha PA Unavailable Unavailable Kim, Ha PA Unavailable Unavailable Kim, Ha PA Unavailable Unavailable Kim, Ha PA Unavailable Unavailable Kim, Ha PA Unavailable Unavailable Kim, Ha PA Unavailable Unavailable Kim, Ha PA Unavailable Unavailable Kim, Ha PA Unavailable Unavailable Kim, Ha PA Unavailable Unavailable Kim, Ha PA Unavailable Unavailable Kim, Ha PA Unavailable Unavailable Kim, Ha PA Unavailable Unavailable Kim, Ha PA Unavailable Unavailable Kim, Ha PA Unavailable Unavailable Kim, Ha PA Unavailable Unavailable Kim, Ha PA Unavailable Unavailable Kim, Ha PA Unavailable Unavailable Kim, Ha PA Unavailable Unavailable Kim, Ha PA Unavailable Unavailable Kim, Ha PA Unavailable Unavailable Kim, Ha PA Unavailable Unavailable Kim, Ha PA Unavailable Unavailable Kim, Ha PA Unavailable Unavailable Kim, Ha PA Unavailable Unavailable Kim, Ha PA Unavailable Unavailable Kim, Ha PA Unavailable Unavailable Kim, Ha PA Unavailable Unavailable Kim, Ha PA Unavailable Unavailable Kim, Ha PA Unavailable Unavailable Kim, Ha PA Unavailable Unavailable Kim, Ha PA Unavailable Unavailable GEORGINA-KAMRYN, TALISHA DO Unavailable Unavailable GEORGINA-KAMRYN, TALISHA DO Unavailable Unavailable GEORGINA-KAMRYN, TALISHA DO Unavailable Unavailable GEORGINA-KAMRYN, TALISHA DO Unavailable Unavailable GEORGINA-KAMRYN, TALISHA DO Unavailable Unavailable GEORGINA-KAMRYN, TALISHA DO Unavailable Unavailable GEORGINA-KAMRYN, TALISHA DO Unavailable Unavailable GEORGINA-KAMRYN, TALISHA DO Unavailable Unavailable GEORGINA-KAMRYN, TALISHA DO Unavailable Unavailable GEORGINA-KAMRYN, TALISHA DO Unavailable Unavailable GEORGINA-KAMRYN, TALISHA DO Unavailable Unavailable GEORGINA-KAMRYN, TALISHA DO Unavailable Unavailable GEORGINA-KAMRYN, TALISHA DO Unavailable Unavailable GEORGINA-KAMRYN, TALISHA DO Unavailable Unavailable GEORGINA-KAMRYN, TALISHA DO Unavailable Unavailable GEORGINA-KAMRYN, TALISHA DO Unavailable Unavailable GEORGINA-KAMRYN, TALISHA DO Unavailable Unavailable GEORGINA-KAMRYN, TALISHA DO Unavailable Unavailable GEORGINA-KAMRYN, TALISHA DO Unavailable Unavailable GEORGINA-KAMRYN, TALISHA DO Unavailable Unavailable GEORGINA-KAMRYN, TALISHA DO Unavailable Unavailable GEORGINA-KAMRYN, TALISHA DO Unavailable Unavailable GEORGINA-KAMRYN, TALISHA DO Unavailable Unavailable GEORGINA-KAMRYN, TALISHA DO Unavailable Unavailable GEORGINA-KAMRYN, TALISHA DO Unavailable Unavailable GEORGINA-KAMRYN, TALISHA DO Unavailable Unavailable GEORGINA-KAMRYN, TALISHA DO Unavailable Unavailable GEORGINA-KAMRYN, TALISHA DO Unavailable Unavailable GEORGINA-KAMRYN, TALISHA DO Unavailable Unavailable GEORGINA-KAMRYN, TALISHA DO Unavailable Unavailable GEORGINA-KAMRYN, TALISHA DO Unavailable Unavailable GEORGINA-KAMRYN, TALISHA DO Unavailable Unavailable GEORGINA-KAMRYN, TALISHA DO Unavailable Unavailable GEORGINA-KAMRYN, TALISHA DO Unavailable Unavailable GEORGINA-KAMRYN, TALISHA DO Unavailable Unavailable GEORGINA-KAMRYN, TALISHA DO Unavailable Unavailable GEORGINA-KAMRYN, TALISHA DO Unavailable Unavailable GEORGINA-KAMRYN, TALISHA DO Unavailable Unavailable GEORGINA-KAMRYN, TALISHA DO Unavailable Unavailable GEORGINA-KAMRYN, TALISHA DO Unavailable Unavailable GEORGINA-KAMRYN, TALISHA DO Unavailable Unavailable GEORGINA-KAMRYN, TALISHA DO Unavailable Unavailable GEORGINA-KAMRYN, TALISHA DO Unavailable Unavailable GEORGINA-KAMRYN, TALISHA DO Unavailable Unavailable GEORGINA-KAMRYN, TALISHA DO Unavailable Unavailable GEORGINA-KAMRYN, TALISHA DO Unavailable Unavailable GEORGINA-KAMRYN, TALISHA DO Unavailable Unavailable GEORGINA-KAMRYN, TALISHA DO Unavailable Unavailable GEORGINA-KAMRYN, TALISHA DO Unavailable Unavailable GEORGINA-KAMRYN, TALISHA DO Unavailable Unavailable GEORGINA-KAMRYN, TALISHA DO Unavailable Unavailable GEORGINA-KAMRYN, TALISHA DO Unavailable Unavailable GEORGINA-KAMRYN, TALISHA DO Unavailable Unavailable GEORGINA-KAMRYN, TALISHA DO Unavailable Unavailable GEORGINA-KAMRYN, TALISHA DO Unavailable Unavailable GEORGINA-KAMRYN, TALISHA DO Unavailable Unavailable GEORGINA-KAMRYN, TALISHA DO Unavailable Unavailable GEORGINA-KAMRYN, TALISHA DO Unavailable Unavailable GEORGINA-KAMRYN, TALISHA DO Unavailable Unavailable GEORGINA-KAMRYN, TALISHA DO Unavailable Unavailable GEORGINA-KAMRYN, TALISHA DO Unavailable Unavailable GEORGINA-KAMRYN, TALISHA DO Unavailable Unavailable GEORGINA-KAMRYN, TALISHA DO Unavailable Unavailable GEORGINA-KAMRYN, TALISHA DO Unavailable Unavailable GEORIGNA-KAMRYN, TALISHA DO Unavailable Unavailable GEORGINA-KAMRYN, TALISHA DO Unavailable Unavailable GEORGINA-KAMRYN, TALISHA DO Unavailable Unavailable GEORGINA-KAMRYN, TALISHA DO Unavailable Unavailable GEORGINA-KAMRYN, TALISHA DO Unavailable Unavailable GEORGINA-KAMRYN, TALISHA DO Unavailable Unavailable GEORGINA-KAMRYN, TALISHA DO Unavailable Unavailable GEORGINA-KAMRYN, TALISHA DO Unavailable Unavailable GEORGINA-KAMRYN, TALISHA DO Unavailable Unavailable GEORGINA-KAMRYN, TALISHA DO Unavailable Unavailable GEORGINA-KAMRYN, TALISHA DO Unavailable Unavailable GEORGINA-KAMRYN, TALISHA DO Unavailable Unavailable GEORGINA-KAMRYN, TALISHA DO Unavailable Unavailable GEORGINA-KAMRYN, TALISHA DO Unavailable Unavailable GEORGINA-KAMRYN, TALISHA DO Unavailable Unavailable GEORGINA-KAMRYN, TALISHA DO Unavailable Unavailable GEORGINA-KAMRYN, TALISHA DO Unavailable Unavailable GEORGINA-KAMRYN, TALISHA DO Unavailable Unavailable GEORGINA-KAMRYN, TALISHA DO Unavailable Unavailable GEORGINA-KAMRYN, TALISHA DO Unavailable Unavailable Benitez Blackburn, Isaak Tan MD, FACS Unavailable Unavailable Benitez Blackburn, Isaak Tan MD, FACS Unavailable Unavailable Benitez Blackburn, Isaak Tan MD, FACS Unavailable Unavailable Benitez Blackburn, Isaak Tan MD, FACS Unavailable Unavailable Benitez Blackburn, Isaak Tan MD, FACS Unavailable Unavailable Benitez Blackburn, Isaak Tan MD, FACS Unavailable Unavailable Benitez Blackburn, Isaak Tan MD, FACS Unavailable Unavailable Benitez Blackburn, Isaak Tan MD, FACS Unavailable Unavailable Benitez Blackburn, Isaak Tan MD, FACS Unavailable Unavailable Benitez Blackburn, Isaak Tan MD, FACS Unavailable Unavailable Benitez Blackburn, Isaak Tan MD, FACS Unavailable Unavailable Benitez Blackburn, Isaak Tan MD, FACS Unavailable Unavailable Benitez Blackburn, Isaak Tan MD, FACS Unavailable Unavailable Benitez Blackburn, Isaak Tan MD, FACS Unavailable Unavailable Benitez Blackburn, Isaak Tan MD, FACS Unavailable Unavailable Benitez Blackburn, Isaak Tan MD, FACS Unavailable Unavailable Benitez Blackburn, Isaak Tan MD, FACS Unavailable Unavailable Benitez Blackburn, Isaak Tan MD, FACS Unavailable Unavailable Beintez Blackburn, Isaak Tan MD, FACS Unavailable Unavailable Benitez Blackburn, Isaak Tan MD, FACS Unavailable Unavailable Benitez Blackburn, Isaak Tan MD, FACS Unavailable Unavailable Benitez Blackburn, Isaak Tan MD, FACS Unavailable Unavailable Benitez Blackburn, Isaak Tan MD, FACS Unavailable Unavailable Benitez Blackburn, Isaak Tan MD, FACS Unavailable Unavailable Benitez Blackburn, Isaak Tan MD, FACS Unavailable Unavailable Benitez Blackburn, Isaak Tan MD, FACS Unavailable Unavailable Benitez Blackburn, Isaak Tan MD, FACS Unavailable Unavailable Benitez Blackburn, Isaak Tan MD, FACS Unavailable Unavailable Benitez Blackburn, Isaak Tan MD, FACS Unavailable Unavailable Benitez Blackburn, Isaak Tan MD, FACS Unavailable Unavailable Benitez Blackburn, Isaak Tan MD, FACS Unavailable Unavailable Benitez Blackburn, Isaak Tan MD, FACS Unavailable Unavailable Benitez Blackburn, Isaak Tan MD, FACS Unavailable Unavailable Benitez Blackburn, Isaak Tan MD, FACS Unavailable Unavailable Benitez Blackburn, Isaak Tan MD, FACS Unavailable Unavailable Benitez Blackburn, Isaak Tan MD, FACS Unavailable Unavailable Benitez Blackburn, Isaak Tan MD, FACS Unavailable Unavailable Benitez Blackburn, Isaak Tan MD, FACS Unavailable Unavailable Benitez Blackburn, Isaak Tan MD, FACS Unavailable Unavailable Re-disclosure Warning The records that you are about to access may contain information from federally-assisted alcohol or drug abuse programs. If such information is present, then the following federally mandated warning applies: This information has been disclosed to you from records protected by federal confidentiality rules (42 CFR part 2). The federal rules prohibit you from making any further disclosure of this information unless further disclosure is expressly permitted by the written consent of the person to whom it pertains or as otherwise permitted by 42 CFR part 2. A general authorization for the release of medical or other information is NOT sufficient for this purpose. The Federal rules restrict any use of the information to criminally investigate or prosecute any alcohol or drug abuse patient.The records that you are about to access may contain highly sensitive health information, the redisclosure of which is protected by Article 27-F of the [facility] Public Health law. If you continue you may have access to information: Regarding HIV / AIDS; Provided by facilities licensed or operated by the [facility] Office of Mental Health; or Provided by the [facility] Office for People With Developmental Disabilities. If such information is present, then the following [facility] mandated warning applies: This information has been disclosed to you from confidential records which are protected by state law. State law prohibits you from making any further disclosure of this information without the specific written consent of the person to whom it pertains, or as otherwise permitted by law. Any unauthorized further disclosure in violation of state law may result in a fine or long term sentence or both. A general authorization for the release of medical or other information is NOT sufficient authorization for further disc losure. Allergies and Adverse Reactions Type Description Substance Reaction Status Data Source(s ) Allergy to substance No Known Allergies No known allergies (situation ) GOVE (Dominick Blackburn MD [facility]) Family History Family Member Name Family Member Gender Family Member Status Date o f Status Description Data Source(s) Unknown Male Problem MEDENT ([facility] ) () Unknown Female Problem MEDENT ([facility]) Unknown Female Problem MEDENT ([facility]) Unknown Female Problem MEDENT ([facility]) Unknown Male Problem [facility] Encounters Encounter Providers Location Date Indications Data Source(s ) Outpatient Attender: Ha GUAJARDO [facility] 11/10/2020 04:00:00 PM EDT MEDENT ([facility]) Outpatient Attender: [facility]ALISHA [facility]ANS[facility] 08/09/2020 04:00:00 PM EDT MEDENT ([facility]) Outpatient Attender: Ha GUAJARDO [facility] 04/20/2020 02:40:00 PM EST MEDENT ([facility]) Outpatient Attender: TALISHA HANSEN [facility] 01/19/2020 03:40:00 PM EDT MEDENT ([facility]) <td ID="encounterTypeDescriptionID0">NEW PATIENT WITH REFERRAL</td><td>Dominick Gaspar MD, FACS</td><td>Dominick Gaspar MD [facility]</td><td>12/22/2019</td><td>9:12AM</td><td>10:04AM</td><td><content ID="encounterDiagnosisID0-0">Taking Medication For Diabetes Long-term Use of Insulin</content>, <content ID="encounterDiagnosisID0-1">Taking Medication For Diabetes Long-term Use of Oral Hypoglycemics</content>, <content ID="encounterDiagnosisID0-2">Dry Eye Syndrome</content>, <content ID="encounterDiagnosisID0-3">Vitreous Disorders Degeneration</content>, <content ID="encounterDiagnosisID0-4">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</content>, <content ID="encounterDiagnosisID0-5">Essential Hypertension</content>, <content ID="encounterDiagnosisID0-6">Retinopathy Hypertensive</content></td>Outpatient Attender: Dominick Blackburn MD, FACS Dominick Gaspar MD [facility] 12/22/2019 09:12:00 AM EDT - 12/22/2019 10:04:00 AM ED T Retinopathy HypertensiveEssential Hypertension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Vitreous Disorders DegenerationDry Eye SyndromeTaking Medication For Diabetes Long-term Use of Oral HypoglycemicsTaking Medication For Diabetes Long-term Use of Insulin DREW (Dominick Blackburn MD [facility]) Retinopathy Hypertensive Essential Hypertension Type 2 Diabetes with Diabetic Retinopath y Moderate Nonproliferative Vitreous Disorders Degeneration Dry Eye Syndrome Taking Medication For Diabetes Long-term Use of Oral Hypoglycemics Taking Medication For Diabetes Long-term Use of Insulin Immunizations Vaccine Date Status Description Data Source(s) COVID-19 VACCINE Pfizer 12/26/2020 12:00:00 AM EDT completed [facility] Vaccine Series Complete: YESThis Data wa s Submitted to [facility] Via [employer]. COVID-19 VACCINE Pfizer 04/12/2020 12:00:00 AM EST completed [facility] Vaccine Series Complete: YESThis Data wa s Submitted to [facility] [employer]. COVID-19 VACCINE Pfizer 03/22/2020 12:00:00 AM EST completed [facility] Vaccine Series Complete: NOThis Data was Submitted to [facility] Via [employer]. Medications Medication Brand Name Start Date Product Form Dose Route Admi nistrative Instructions Pharmacy Instructions Status Indications Reaction Description Data Source(s) 1,000 mg 01/16/2021 12:00:00 AM EDT tablet 180 TAKE ONE TABLET BY MOUTH EVERY DAY WITH BREAKFAST AND DINNER TAKE ONE TABLET BY MOUTH EVERY DAY WITH BREAKFAST AND DINNER SOLD: 01/19/2021 [facility] atorvastatin 10 MG Oral Tablet ATORVASTATIN CALCIUM 01/11/2021 1 2:00:00 AM EDT tablet 90 TAKE ONE TABLET BY MOUTH EVERY E VENING TAKE ONE TABLET BY MOUTH EVERY EVENING SOLD: 01/16/2021 [facility]-25 mg 01/11/2021 12:00:00 AM EDT tablet 90 TAKE ONE TABLET BY MOUTH EVERY DAY TAKE ONE TABLET BY MOUTH EVERY DAY SOLD: 01/16/2021 [facility] 10 mg 11/18/2020 12:00:00 AM EDT tablet 90 TAKE ONE TABLET BY MOUTH EVERY DAY TAKE ONE TABLET BY MOUTH EVERY DAY SOLD: 11/25/2020 [facility] 1 mg/dose (4 mg/3 mL) 10/20/2020 12:00:00 AM EDT pen injecto r 9 INJECT 1MG UNDER THE SKIN ONCE A WEEK INJECT 1MG UNDER THE SKIN ONCE A WEEK SOLD: 01/16/2021 [facility] 1 mg/dose (4 mg/3 mL) 10/20/2020 12:00:00 AM EDT pen injecto r 9 INJECT 1MG UNDER THE SKIN ONCE A WEEK INJECT 1MG UNDER THE SKIN ONCE A WEEK SOLD: 10/31/2020 [facility] 200 unit/mL (3 mL) 10/18/2020 12:00:00 AM EDT insulin pen 54 INJECT 124 UNITS UNDER THE SKIN ONCE DAILY INJECT 124 UNITS UNDER THE SKIN ONCE DAILY SOLD: 10/31/2020 [facility] 200 unit/mL (3 mL) 10/18/2020 12:00:00 AM EDT insulin pen 54 INJECT 124 UNITS UNDER THE SKIN ONCE DAILY INJECT 124 UNITS UNDER THE SKIN ONCE DAILY SOLD: 01/16/2021 [facility] 180 mg 08/12/2020 12:00:00 AM EDT tablet 90 TAKE ONE TABLET BY MOUTH EVERY DAY TAKE ONE TABLET BY MOUTH EVERY DAY SOLD: 08/12/2020 [facility] 180 mg 08/12/2020 12:00:00 AM EDT tablet 90 TAKE ONE TABLET BY MOUTH EVERY DAY TAKE ONE TABLET BY MOUTH EVERY DAY SOLD: 11/18/2020 [facility] atorvastatin 10 MG Oral Tablet ATORVASTATIN CALCIUM 07/14/2020 1 2:00:00 AM EDT tablet 90 TAKE ONE TABLET BY MOUTH EVERY E VENING TAKE ONE TABLET BY MOUTH EVERY EVENING SOLD: 10/17/2020 [facility] atorvastatin 10 MG Oral Tablet ATORVASTATIN CALCIUM 07/14/2020 1 2:00:00 AM EDT tablet 90 TAKE ONE TABLET BY MOUTH EVERY E VENING TAKE ONE TABLET BY MOUTH EVERY EVENING SOLD: 07/19/2020 [facility] 1 mg/dose (2 mg/1.5 mL) 04/21/2020 12:00:00 AM EST pen injec tor 9 INJECT 1MG UNDER THE SKIN ONCE A WEEK INJECT 1MG UNDER THE SKIN ONCE A WEEK SOLD: 08/12/2020 [facility] 1 mg/dose (2 mg/1.5 mL) 04/21/2020 12:00:00 AM EST pen injec tor 9 INJECT 1MG UNDER THE SKIN ONCE A WEEK INJECT 1MG UNDER THE SKIN ONCE A WEEK SOLD: 05/04/2020 [facility] 320-25 mg 04/21/2020 12:00:00 AM EST tablet 90 TAKE ONE TABLET BY MOUTH EVERY DAY TAKE ONE TABLET BY MOUTH EVERY DAY SOLD: 05/04/2020 [facility] 10 mg 04/21/2020 12:00:00 AM EST tablet 90 TAKE ONE TABLET BY MOUTH EVERY DAY TAKE ONE TABLET BY MOUTH EVERY DAY SOLD: 05/04/2020 [facility] 200 unit/mL (3 mL) 04/21/2020 12:00:00 AM EST insulin pen 54 INJECT 124 UNITS UNDER THE SKIN ONCE DAILY INJECT 124 UNITS UNDER THE SKIN ONCE DAILY SOLD: 05/04/2020 [facility] 10 mg 04/21/2020 12:00:00 AM EST tablet 90 TAKE ONE TABLET BY MOUTH EVERY DAY TAKE ONE TABLET BY MOUTH EVERY DAY SOLD: 08/24/2020 [facility] 320-25 mg 04/21/2020 12:00:00 AM EST tablet 90 TAKE ONE TABLET BY MOUTH EVERY DAY TAKE ONE TABLET BY MOUTH EVERY DAY SOLD: 07/19/2020 [facility] 320-25 mg 04/21/2020 12:00:00 AM EST tablet 90 TAKE ONE TABLET BY MOUTH EVERY DAY TAKE ONE TABLET BY MOUTH EVERY DAY SOLD: 10/17/2020 [facility] 200 unit/mL (3 mL) 04/21/2020 12:00:00 AM EST insulin pen 54 INJECT 124 UNITS UNDER THE SKIN ONCE DAILY INJECT 124 UNITS UNDER THE SKIN ONCE DAILY SOLD: 08/12/2020 [facility] atorvastatin 10 MG Oral Tablet ATORVASTATIN CALCIUM 02/01/2020 1 2:00:00 AM EST tablet 90 TAKE ONE TABLET BY MOUTH EVERY E VENING TAKE ONE TABLET BY MOUTH EVERY EVENING SOLD: 05/04/2020 [facility] 32 gauge x 1/6" 02/01/2020 12:00:00 AM EST needle 200 USE WITH LANTUS PEN TWICE DAILY USE WITH LANTUS PEN TWICE DAILY SOLD: 08/24/2020 [facility] Metformin hydrochloride 1000 MG Oral Tablet 1,000 mg METFORM IN HCL 01/04/2020 12:00:00 AM EDT tablet 180 TAKE ONE TABLET BY MOUTH EVERY DAY WITH BREAKFAST AND DINNER TAKE ONE TABLET BY MOUTH EVERY DAY WITH BREAKFAST AND DINNER SOLD: 01/11/2020 [facility] Metformin hydrochloride 1000 MG Oral Tablet 1,000 mg METFORM IN HCL 01/04/2020 12:00:00 AM EDT tablet 180 TAKE ONE TABLET BY MOUTH EVERY DAY WITH BREAKFAST AND DINNER TAKE ONE TABLET BY MOUTH EVERY DAY WITH BREAKFAST AND DINNER SOLD: 04/19/2020 [facility] 1,000 mg 01/04/2020 12:00:00 AM EDT tablet 180 TAKE ONE TABLET BY MOUTH EVERY DAY WITH BREAKFAST AND DINNER TAKE ONE TABLET BY MOUTH EVERY DAY WITH BREAKFAST AND DINNER SOLD: 07/19/2020 [facility] 1,000 mg 01/04/2020 12:00:00 AM EDT tablet 180 TAKE ONE TABLET BY MOUTH EVERY DAY WITH BREAKFAST AND DINNER TAKE ONE TABLET BY MOUTH EVERY DAY WITH BREAKFAST AND DINNER SOLD: 10/17/2020 [facility] Daily Value Multivitamin Oral Tablet Daily Value Multivitami n Oral Tablet 12/22/2019 12:00:00 AM EDT 1 active Daily Value Multivitamin DREW (Dominick Blackburn MD [facility]) Magnesium 400 MG Oral Tablet Magnesium 400 MG Oral Tablet 12:00:00 AM EDT 1 active Magnesium GREENWA Y (Dominick Blackburn MD [facility]) Atorvastatin 10 mg Oral Tablet Atorvastatin 10 mg Oral Table t 12/22/2019 12:00:00 AM EDT 1 active Atorvast atin 10 mg DREW (Dominick Blackburn MD [facility]) Fexofenadine hydrochloride 180 MG Oral T ablet Fexofenadine HCl 180 MG Oral Tablet Fexofenadine HCl 180 MG Oral Tablet 12/22/2019 12:00:00 AM EDT 1 active fexofenadine hydrochloride 180 M G Oral Tablet DREW (Dominick Blackburn MD [facility]) [facility] Vitamin C 1000 MG Oral Tablet [facility] Vitamin C 1000 MG Oral Tablet 12/22/2019 12:00:00 AM EDT 1 active [facility] [place] min C DREW (Dominick Blackburn MD [facility]) SB Low Dose ASA EC 81 MG Oral Tablet Delayed Release S B Low Dose ASA EC 81 MG Oral Tablet Delayed Release 12/22/2019 12:00:00 AM EDT 1 active SB Low Dose ASA EC DREW (Dominick Blackburn MD [facility]) Metformin hydrochloride 1000 MG Oral Tablet metFORMIN HCl 1000 MG Oral Tablet metFORMIN HCl 1000 MG Oral Tablet 12/22/2019 12:00:00 AM EDT 1 active metformin hydrochloride 1000 MG Oral Tablet DREW ( Dominick Blackburn MD [facility]) dapagliflozin 10 MG Oral Tablet [Farxiga] Farxiga 10 M G Oral Tablet Farxiga 10 MG Oral Tablet 12/22/2019 12:00:00 AM EDT 1 act cynthia dapagliflozin 10 MG Oral Tablet [Farxiga] DREW (Dominick Blackburn MD [facility]) Hydrochlorothiazide 25 MG / valsartan 32 0 MG Oral Tablet Valsartan- hydroCHLOROthiazide 320-25 MG Oral Tablet Valsartan-hydroCHLOROthiazide 320-25 MG Oral Tablet 12/22/2019 12:00:00 AM EDT 1 act cynthia hydrochlorothiazide 25 MG / valsartan 320 MG Oral Tablet DREW (Dominick Blackburn MD [facility]) Tresiba FlexTouch 200 UNIT/ML Subcutaneous Solution Pe n-injector Tresiba FlexTouch 200 UNIT/ML Subcutaneous Solution Pen-injector 12/22/2019 12:00:00 AM EDT 1 active 3 ML ins ulin degludec 200 UNT/ML Pen Injector [Tresiba] DREW (Dominick Blackburn MD [facility]) Ozempic (0.25 or 0.5 MG/DOSE) 2 MG/1.5ML Subcutaneous Solution Pen-injector Ozempic (0.25 or 0.5 MG/DOSE) 2 MG/1.5ML Subcutaneous Solution Pen-injector 12/22/2019 12:00:00 AM EDT active 0.25 MG, 0.5 MG Dose 1.5 ML semaglutide 1.34 MG/ML Pen Injector [Ozempic] DREW (Dominick Blackburn MD [facility]) Insurance Providers Payer name Policy type / Coverage type Policy ID Covered libertarian ID Covered libertarian's relationship to quinn Policy [place] Plan Information [place] PPO 302/307 [id number] SP [id number] BCBS OF [facility] 306/806 [id number] SP [id number] BCBS of [facility] Other 0 [id number] Self 0 [employer] [id number] Self [id number] [facility] [id number] Self VYA [id number] [employer] BS [employer] Maintenance Organization (HMO) [id number] Self V [id number] [facility] [id number] Self VYA [id number] [facility] [id number] Self [id number] [id number] Yvette [employer] U/W Commercial [id number] Self [id number] [id number] [facility] [id number] Self VYA [id number] [facility] [id number] Self VYA [id number] [facility] [id number] Self VYA [id number] [facility] [id number] Self VYA [id number] [facility] [id number] Self VYA [id number] [facility] Commercial 173 Self BCBS OF [facility] 306/806 [id number] SP [id number] BS Of [facility] Commercial [id number] Self BCBS OF [facility] 306/806 [id number] SP [id number] Problems, Conditions, and Diagnoses Code Display Name Description Problem Type Effective Dates Data Source(s) 379.21 Vitreous Disorders Degeneration Vitreous Disorders Deg eneration Problem 12/22/2019 12:00:00 AM EDT DREW (Dominick Blackburn MD [facility]) 375.15 Dry Eye Syndrome Dry Eye Syndrome Problem 12/22/2019 12 :00:00 AM EDT DREW (Dominick Blackburn MD [facility]) [id number] Long-term current use of insulin (situat ion) Taking Medication For Diabetes Long-term Use of Insulin Problem 12/22/2019 12:00:00 AM EDT DREW (Dominick Blackburn MD [facility]) [id number] Taking Medication For Diabetes Long-term Use of Oral Hypoglycemics Taking Medication For Diabetes Long-term Use of Oral Hypoglycemics Finding 12/22/2019 12:00:00 AM EDT DREW (Dominick Blackburn MD [facility]) E11.3393 Type 2 Diabetes with Diabetic Retinopath y Moderate Nonproliferative 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 ([facility]) OFFICE OUTPATIENT VISIT 25 MINUTES 08/09/2020 12:00:00 AM EDT [facility] ([facility]) Surgical / procedural history Repair Plyloric Stenosi s as an Surgical / procedural history Repair Plyloric Stenosis as an infant 12/22/2019 12:00:00 AM EDT DREW (Dominick Blackburn MD [facility]) Medical Eye Exam Medical Eye Exam 12/22/2019 12:00:00 AM EDT DREW (Dominick Blackburn MD [facility]) Results ID Date Data Source [id number] 11/02/2020 06:57:00 AM EDT [facility] ([facility]) Name Value Range Interpretation Code Description Data Radha rce(s) Supporting Document(s) Hepatitis A virus IgG Ab [Units/volume] in Serum Laboratory test resu lt [facility] ([facility]) Hepatitis A virus IgM Ab [Units/volume] in Serum by Im munoassay Laboratory test result [facility] ([facility]) ID Date Data Source [id number] 11/02/2020 06:57:00 AM EDT [facility] ([facility]) Name Value Range Interpretation Code Description Data Radha rce(s) Supporting Document(s) Hepatitis C virus Ab [Units/volume] in Serum by Immuno assay Laboratory test result [facility] ([facility]) ID Date Data Source [id number] 11/02/2020 06:57:00 AM EDT [facility] ([facility]) Name Value Range Interpretation Code Description Data Radha rce(s) Supporting Document(s) Thyroid Stimulating Hormone 1.640 uIU/ML 0.358-3.740 Norm al (applies to non- numeric results) [facility] ([facility]) Free T4 0.94 ng/dL 0.76-1.46 Normal (applies to non-numeric resul ts) [facility] ([facility]) ID Date Data Source [id number] 11/02/2020 06:57:00 AM EDT [facility] ([facility]) Name Value Range Interpretation Code Description Data Radha rce(s) Supporting Document(s) Hemoglobin A1c 8.0 % Normal (applies to non-numeric r esults) [facility] ([facility]) <content>REFERENCE RANGES:</content><br/ ><content></content>
<content><=5.6% NORMAL</content>
<content>5.7-6.4% SUGGESTS IMPAIRED GLUCOSE METABOLISM/PREDIABETIC</content>
<content>>= 6.5% ABNORMAL</content>
<content></content> Estimated Average Glucose 183 mg/dL 60-110 Above high normal [facility] ([facility]) ID Date Data Source [id number] 11/02/2020 06:57:00 AM EDT [facility] ([facility]) Name Value Range Interpretation Code Description Data Radha rce(s) Supporting Document(s) Cholesterol Level 153 mg/dL Normal (applies to non-numeri c results) [facility] ([facility]) Triglycerides Level 329 mg/dL Above high normal [facility] ([facility]) LDL Cholesterol 50 mg/dL Normal (applies to non-numeric results) [facility] ([facility]) HDL Cholesterol 37 mg/dL Below low normal [facility] ([facility]) Non-HDL-C 116 mg/dL Normal (applies to non-numeric resul ts) [facility] ([facility]) Cholesterol Risk Ratio 4.135 Normal (applies to non-n umeric results) [facility] ([facility]) ID Date Data Source [id number] 11/02/2020 06:57:00 AM EDT [facility] ([facility]) Name Value Range Interpretation Code Description Data Radha rce(s) Supporting Document(s) Glucose, Fasting 179 mg/dL 70-100 Above high normal [facility]) Blood Urea Nitrogen 19 mg/dL 7-18 Above high normal [facility] ([facility]) Creatinine For GFR 1.17 mg/dL 0.70-1.30 Normal (applies to non -numeric results) [facility] ([facility]) Sodium Level 141 meq/L 136-145 Normal (applies to non-numeric res ults) [facility] ([facility]) Glomerular Filtration Rate Laboratory test result Normal (applies to non- numeric results) [facility] ([facility]) <content>Units are mL/min/1.73 m2</content>
<content></content>
<content>Chronic Kidney Disease Staging per NKF:</content>
<content></content>
<content>Stage I & II GFR >=60 Normal to Mildly Decreased</content>
<content>Stage III GFR 30- 59 Moderately Decreased</content>
<content>Stage IV GFR 15-29 Severely Decreased</content>
<content>Stage V GFR <15 Very Little GFR Left</content>
<content>ESRD GFR <15 on SAMPLE MAKER</content>
<content></content> Potassium Serum 4.2 meq/L 3.5-5.1 Normal (applies to non-numeric results) [facility] ([facility]) Chloride Level 105 meq/L 98-107 Normal (applies to non-numeric r esults) [facility] ([facility]) Carbon Dioxide Level 27 meq/L 21-32 Normal (applies to non-num genevieve results) [facility] ([facility]) Anion Gap 9 meq/L 8-16 Normal (applies to non-numeric resul ts) [facility] ([facility]) Ast/Sgot 38 U/L 7-37 Above high normal [facility] Calcium Level 9.6 mg/dL 8.5-10.1 Normal (applies to non-numeric re sults) [facility] ([facility]) Alt/SGPT 86 U/L 12-78 Above high normal [facility] ([facility]) Alkaline Phosphatase 65 U/L 45-117 Normal (applies to non-num genevieve results) [facility] ([facility]) Total Protein 7.5 GM/DL 6.4-8.2 Normal (applies to non-numeric re sults) [facility] ([facility]) Bilirubin,Total 0.5 mg/dL 0.2-1.0 Normal (applies to non-numeric results) [facility] ([facility]) Albumin/Globulin Ratio 1.3 Normal (applies to non-n umeric results) [facility] ([facility]) Albumin 4.2 GM/DL 3.2-5.2 Normal (applies to non-numeric resul ts) [facility] ([facility]) ID Date Data Source [id number] 11/02/2020 06:57:00 AM EDT [facility] ([facility]) Name Value Range Interpretation Code Description Data Radha rce(s) Supporting Document(s) Parathyrin.intact [Mass/volume] in Serum or Plasma 33.1 pg/mL 18.5-88.0 Normal (applies to non-numeric results) [facility] ([facility]) ID Date Data Source [id number] 08/05/2020 06:29:00 AM EDT [facility] ([facility]) Name Value Range Interpretation Code Description Data Radha rce(s) Supporting Document(s) Thyroid Stimulating Hormone 1.290 uIU/ML 0.358-3.740 Norm al (applies to non- numeric results) [facility] ([facility]) Free T4 1.00 ng/dL 0.76-1.46 Normal (applies to non-numeric resul ts) [facility] ([facility]) ID Date Data Source [id number] 08/05/2020 06:29:00 AM EDT [facility] ([facility]) Name Value Range Interpretation Code Description Data Radha rce(s) Supporting Document(s) Triglycerides Level 276 mg/dL Above high normal [facility] ([facility]) Cholesterol Level 153 mg/dL Normal (applies to non-numeri c results) [facility] ([facility]) HDL Cholesterol 39 mg/dL Below low normal [facility] ([facility]) LDL Cholesterol 59 mg/dL Normal (applies to non-numeric results) [facility] ([facility]) Non-HDL-C 114 mg/dL Normal (applies to non-numeric resul ts) [facility] ([facility]) Cholesterol Risk Ratio 3.923 Normal (applies to non-n umeric results) [facility] ([facility]) ID Date Data Source [id number] 08/05/2020 06:29:00 AM EDT [facility] ([facility]) Name Value Range Interpretation Code Description Data Radha rce(s) Supporting Document(s) Glucose, Fasting 152 mg/dL 70-100 Above high normal [facility] ([facility]) Blood Urea Nitrogen 20 mg/dL 7-18 Above high normal [facility] ([facility]) Creatinine For GFR 1.08 mg/dL 0.70-1.30 Normal (applies to non -numeric results) [facility] ([facility]) Glomerular Filtration Rate Laboratory test result Normal (applies to non- numeric results) [facility] ([facility]) <content>Units are mL/min/1.73 m2</content>
<content></content>
<content>Chronic Kidney Disease Staging per NKF:</content>
<content></content>
<content>Stage I & II GFR >=60 Normal to Mildly Decreased</content>
<content>Stage III GFR 30- 59 Moderately Decreased</content>
<content>Stage IV GFR 15-29 Severely Decreased</content>
<content>Stage V GFR <15 Very Little GFR Left</content>
<content>ESRD GFR <15 on SAMPLE MAKER</content>
<content></content> Sodium Level 139 meq/L 136-145 Normal (applies to non-numeric res ults) [facility] ([facility]) Potassium Serum 4.3 meq/L 3.5-5.1 Normal (applies to non-numeric results) [facility] ([facility]) Chloride Level 105 meq/L 98-107 Normal (applies to non-numeric r esults) [facility] ([facility]) Carbon Dioxide Level 28 meq/L 21-32 Normal (applies to non-num genevieve results) [facility] ([facility]) Anion Gap 6 meq/L 8-16 Below low normal [facility] Calcium Level 10.3 mg/dL 8.5-10.1 Above high normal [facility] ([facility]) Ast/Sgot 47 U/L 7-37 Above high normal [facility]) Alt/SGPT 104 U/L 12-78 Above high normal [facility]) Alkaline Phosphatase 59 U/L 45-117 Normal (applies to non-num genevieve results) [facility] ([facility]) Bilirubin,Total 0.6 mg/dL 0.2-1.0 Normal (applies to non-numeric results) [facility] ([facility]) Total Protein 7.3 GM/DL 6.4-8.2 Normal (applies to non-numeric re sults) [facility] ([facility]) Albumin 4.2 GM/DL 3.2-5.2 Normal (applies to non-numeric resul ts) [facility] ([facility]) Albumin/Globulin Ratio 1.4 Normal (applies to non-n umeric results) [facility] ([facility]) ID Date Data Source [id number] 08/05/2020 06:29:00 AM EDT [facility] ([facility]) Name Value Range Interpretation Code Description Data Radha rce(s) Supporting Document(s) Hemoglobin A1c 7.7 % Normal (applies to non-numeric r esults) [facility] ([facility]) <content>REFERENCE RANGES:</content><br/ ><content></content>
<content><=5.6% NORMAL</content>
<content>5.7-6.4% SUGGESTS IMPAIRED GLUCOSE METABOLISM/PREDIABETIC</content>
<content>>= 6.5% ABNORMAL</content>
<content></content> Estimated Average Glucose 174 mg/dL 60-110 Above high normal [facility] ([facility]) ID Date Data Source [id number] 04/18/2020 06:32:00 AM EST [facility] ([facility]) Name Value Range Interpretation Code Description Data Radha rce(s) Supporting Document(s) Red Blood Count 5.39 10 4.30-6.10 Normal (applies to non-numeric results) [facility] ([facility]) White Blood Count 8.4 10 4.0-10.0 Normal (applies to non-numeri c results) [facility] ([facility]) Hematocrit 49.7 % 42.0-52.0 Normal (applies to non-numeric resul ts) [facility] ([facility]) Hemoglobin 16.3 g/dL 13.5-17.5 Normal (applies to non-numeric resul ts) [facility] ([facility]) Mean Corpuscular Hemoglobin 30.2 pg 27.0-33.0 Norm al (applies to non-numeric results) [facility] ([facility]) Mean Corpuscular Volume 92.2 fl 80.0-96.0 Normal ( applies to non-numeric results) [facility] ([facility]) Red Cell Distribution Width 12.5 % 11.5-14.5 Norm al (applies to non-numeric results) [facility] ([facility]) Mean Corpuscular HGB Conc 32.8 g/dL 32.0-36.5 Normal (applies to non-numeric results) [facility] ([facility]) Neutrophils % 50.7 % 36.0-66.0 Normal (applies to non-numeric re sults) [facility] ([facility]) Platelet Count, Automated 242 10 150-450 Normal (applies to non-numeric results) [facility] ([facility]) Lymph % 34.3 % 24.0-44.0 Normal (applies to non-numeric resul ts) [facility] ([facility]) Eos % 3.2 % 0.0-3.0 Above high normal [facility] ([facility]) [place] % 10.4 % 0.0-5.0 Above high normal [facility] ([facility]) Baso % 0.8 % 0.0-1.0 Normal (applies to non-numeric resul ts) [facility] ([facility]) Immature Granulocyte % 0.6 % 0-3.0 Normal (applies to non-n umeric results) [facility] ([facility]) Neutrophils # 4.2 10 1.5-8.5 Normal (applies to non-numeric re sults) [facility] ([facility]) Nucleated Red Blood Cell % 0.0 % 0-0 Normal (applies to n on-numeric results) [facility] ([facility]) [place] # 0.9 10 0.0-0.8 Above high normal [facility] ([facility]) Lymph # 2.9 10 1.5-5.0 Normal (applies to non-numeric resul ts) [facility] ([facility]) Eos # 0.3 10 0.0-0.5 Normal (applies to non-numeric resul ts) [facility] ([facility]) Baso # 0.1 10 0.0-0.2 Normal (applies to non-numeric resul ts) [facility] ([facility]) ID Date Data Source [id number] 04/18/2020 06:32:00 AM EST [facility] ([facility]) Name Value Range Interpretation Code Description Data Radha rce(s) Supporting Document(s) Glucose, Fasting 187 mg/dL 70-100 Above high normal [facility] ([facility]) Creatinine For GFR 1.21 mg/dL 0.70-1.30 Normal (applies to non -numeric results) [facility] ([facility]) Blood Urea Nitrogen 23 mg/dL 7-18 Above high normal [facility] ([facility]) Glomerular Filtration Rate Laboratory test result Normal (applies to non- numeric results) [facility] ([facility]) <content>Units are mL/min/1.73 m2</content>
<content></content>
<content>Chronic Kidney Disease Staging per NKF:</content>
<content></content>
<content>Stage I & II GFR >=60 Normal to Mildly Decreased</content>
<content>Stage III GFR 30- 59 Moderately Decreased</content>
<content>Stage IV GFR 15-29 Severely Decreased</content>
<content>Stage V GFR <15 Very Little GFR Left</content>
<content>ESRD GFR <15 on SAMPLE MAKER</content>
<content></content> Sodium Level 138 meq/L 136-145 Normal (applies to non-numeric res ults) [facility] ([facility]) Potassium Serum 4.3 meq/L 3.5-5.1 Normal (applies to non-numeric results) [facility] ([facility]) Chloride Level 104 meq/L 98-107 Normal (applies to non-numeric r esults) [facility] ([facility]) Carbon Dioxide Level 26 meq/L 21-32 Normal (applies to non-num genevieve results) [facility] ([facility]) Anion Gap 8 meq/L 8-16 Normal (applies to non-numeric resul ts) [facility] ([facility]) Ast/Sgot 36 U/L 7-37 Normal (applies to non-numeric resul ts) [facility] ([facility]) Calcium Level 9.9 mg/dL 8.5-10.1 Normal (applies to non-numeric re sults) [facility] ([facility]) Alkaline Phosphatase 65 U/L 45-117 Normal (applies to non-num genevieve results) [facility] ([facility]) Alt/SGPT 98 U/L 12-78 Above high normal [facility] ([facility]) Total Protein 7.2 GM/DL 6.4-8.2 Normal (applies to non-numeric re sults) [facility] ([facility]) Bilirubin,Total 0.5 mg/dL 0.2-1.0 Normal (applies to non-numeric results) [facility] ([facility]) Albumin 4.0 GM/DL 3.2-5.2 Normal (applies to non-numeric resul ts) [facility] ([facility]) Albumin/Globulin Ratio 1.3 Normal (applies to non-n umeric results) [facility] ([facility]) ID Date Data Source [id number] 04/18/2020 06:32:00 AM EST [facility] ([facility]) Name Value Range Interpretation Code Description Data Radha rce(s) Supporting Document(s) Estimated Average Glucose 206 mg/dL 60-110 Above high normal [facility] ([facility]) Hemoglobin A1c 8.8 % Normal (applies to non-numeric r esults) [facility] ([facility]) <content>REFERENCE RANGES:</content><br/ ><content></content>
<content><=5.6% NORMAL</content>
<content>5.7-6.4% SUGGESTS IMPAIRED GLUCOSE METABOLISM/PREDIABETIC</content>
<content>>= 6.5% ABNORMAL</content>
<content></content> ID Date Data Source [id number] 01/13/2020 06:37:00 AM EDT [facility] ([facility]) Name Value Range Interpretation Code Description Data Radha rce(s) Supporting Document(s) Hemoglobin A1c 7.8 % Normal (applies to non-numeric r esults) [facility] ([facility]) <content>REFERENCE RANGES:</content><br/ ><content></content>
<content><=5.6% NORMAL</content>
<content>5.7-6.4% SUGGESTS IMPAIRED GLUCOSE METABOLISM/PREDIABETIC</content>
<content>>= 6.5% ABNORMAL</content>
<content></content> Estimated Average Glucose 177 mg/dL 60-110 Above high normal [facility] ([facility]) ID Date Data Source [id number] 01/13/2020 06:37:00 AM EDT [facility] ([facility]) Name Value Range Interpretation Code Description Data Radha rce(s) Supporting Document(s) Glucose, Fasting 138 mg/dL 70-100 Above high normal [facility]) Glomerular Filtration Rate Laboratory test result Normal (applies to non- numeric results) [facility] ([facility]) <content>Units are mL/min/1.73 m2</content>
<content></content>
<content>Chronic Kidney Disease Staging per NKF:</content>
<content></content>
<content>Stage I & II GFR >=60 Normal to Mildly Decreased</content>
<content>Stage III GFR 30- 59 Moderately Decreased</content>
<content>Stage IV GFR 15-29 Severely Decreased</content>
<content>Stage V GFR <15 Very Little GFR Left</content>
<content>ESRD GFR <15 on SAMPLE MAKER</content>
<content></content> Blood Urea Nitrogen 19 mg/dL 7-18 Above high normal [facility] ([facility]) Creatinine For GFR 1.15 mg/dL 0.70-1.30 Normal (applies to non -numeric results) [facility] ([facility]) Potassium Serum 4.3 meq/L 3.5-5.1 Normal (applies to non-numeric results) [facility] ([facility]) Sodium Level 139 meq/L 136-145 Normal (applies to non-numeric res ults) [facility] ([facility]) Chloride Level 104 meq/L 98-107 Normal (applies to non-numeric r esults) [facility] ([facility]) Carbon Dioxide Level 26 meq/L 21-32 Normal (applies to non-num genevieve results) [facility] ([facility]) Calcium Level 9.3 mg/dL 8.5-10.1 Normal (applies to non-numeric re sults) [facility] ([facility]) Anion Gap 9 meq/L 8-16 Normal (applies to non-numeric resul ts) [facility] ([facility]) Procedure Social History Code Duration Value Status Description Data Source(s ) Smoking 11/10/2020 12:00:00 AM EDT Patient has never smoked co mpleted Patient has never smoked [facility] ([facility]) Smoking 05/19/2020 12:00:00 AM EST Patient has never smoked co mpleted Patient has never smoked [facility] ([facility], ) Smoking 12/22/2019 10:29:12 AM EDT Never smoked tobacco (findi flex) completed Never smoked tobacco (finding) DREW (Dominick Blackburn MD [facility]) Vital Signs ID Date Data Source UNK Name Value Range Interpretation Code Description Data Source(s) Systolic blood pressure 142 mm[Hg] 142 mm[Hg] M EDENT ([facility]) Diastolic blood pressure 88 mm[Hg] 88 mm[Hg] MEDENT ([facility]) Body height 71.5 [in_i] 71.5 [in_i] MEDENT ([facility]) 5'11.50" Body weight 289.00 [lb_av] 289.00 [lb_av] MEDEN T ([facility]) Body mass index (BMI) [Ratio] 39.7 kg/m2 39.7 k g/m2 MEDENT ([facility]) Heart rate 84 /min 84 /min [facility] ([facility]) Respiratory [facility] 18 /min 18 /min [facility] Body temperature 97.7 [degF] 97.7 [degF] MEDENT ([facility]) Oxygen saturation in Arterial blood by Pulse oximetry 98 % 98 % MEDENT ([facility]) [place] body weight 172 [lb_av] 172 [lb_av] MEDEN T ([facility]) Body weight 291.25 [lb_av] 291.25 [lb_av] MEDEN T ([facility]) Body height 71.5 [in_i] 71.5 [in_i] MEDENT ([facility]) 5'11.50" Systolic blood pressure 130 mm[Hg] 130 mm[Hg] M EDENT ([facility]) Diastolic blood pressure 78 mm[Hg] 78 mm[Hg] MEDENT ([facility]) Heart rate 92 /min 92 /min [facility] ([facility]) Respiratory rate 18 /min 18 /min [facility] ( [facility]) Body temperature 97.4 [degF] 97.4 [degF] [facility] ([facility]) Oxygen saturation in Arterial blood by Pulse oximetry 98 % 98 % [facility] ([facility]) [place] body weight 172 [lb_av] 172 [lb_av] MEDEN T ([facility]) Body mass index (BMI) [Ratio] 40.1 kg/m2 40.1 k g/m2 [facility] ([facility]) Systolic blood pressure 120 mm[Hg] 120 mm[Hg] [facility] ([facility], ) Diastolic blood pressure 80 mm[Hg] 80 mm[Hg] [facility] ([facility]) Heart rate 94 /min 94 /min [facility] ([facility]) Oxygen saturation in Arterial blood by Pulse oximetry 98 % 98 % [facility] ([facility]) Body temperature 97.5 [degF] 97.5 [degF] [facility] ([facility]) Body height 71 [in_i] 71 [in_i] [facility] ([facility]) 5'11" Body weight 294.00 [lb_av] 294.00 [lb_av] [facility] Body mass index (BMI) [Ratio] 41.0 kg/m2 41.0 k g/m2 [facility] ([facility]) [place] body weight 172 [lb_av] 172 [lb_av] [facility] Body weight 133.358 kg 133.358 kg [facility] ([facility]) Body surface area Derived from formula 2.48 m2 2.48 m2 [facility] ([facility]) Systolic blood pressure 124 mm[Hg] 124 mm[Hg] [facility] Diastolic blood pressure 76 mm[Hg] 76 mm[Hg] [facility] ([facility]) Body height 71.5 [in_i] 71.5 [in_i] [facility] ([facility] " Body weight 295.38 [lb_av] 295.38 [lb_av] MEDEN T ([facility]) Body mass index (BMI) [Ratio] 40.6 kg/m2 40.6 k g/m2 [facility] ([facility]) Heart rate 96 /min 96 /min [facility] ([facility]) Respiratory rate 18 /min 18 /min [facility] ( [facility]) Body temperature 97.1 [degF] 97.1 [degF] [facility] ([facility]) Oxygen saturation in Arterial blood by Pulse oximetry 97 % 97 % [facility] ([facility]) [place] body weight 172 [lb_av] 172 [lb_av] MEDEN T ([facility]) Body height 71.5 [in_i] 71.5 [in_i] [facility] ([facility] " Systolic blood pressure 112 mm[Hg] 112 mm[Hg] M EDENT ([facility]) Diastolic blood pressure 70 mm[Hg] 70 mm[Hg] [facility] ([facility]) Body weight 295.50 [lb_av] 295.50 [lb_av] MEDEN T ([facility]) Body mass index (BMI) [Ratio] 40.6 kg/m2 40.6 k g/m2 [facility] ([facility]) Heart rate 95 /min 95 /min [facility] ([facility]) Respiratory rate 16 /min 16 /min [facility] ( [facility]) Body temperature 97.1 [degF] 97.1 [degF] [facility] ([facility]) Oxygen saturation in Arterial blood by Pulse oximetry 99 % 99 % [facility] ([facility]) [place] body weight 172 [lb_av] 172 [lb_av] MEDEN T ([facility])
--- NOTE | 2021-01-25 08:06 | IPNPDOC ---
Text Note Date of Service The patient was seen on 01/25/21. NOTE CODE NOTE: [facility] was called at 7.19am this morning in the [facility] building and [facility] team arrived at 7.21am. At 7.22 we established that he had no pulse, respiration and was unresponsive. We began CPR at 7.22 am. We continued chest compression with bagging until 7.31am when we established access via R IO access at which point he received his first epinephrine. He received a total of 5 epis, 5 shocks for fine Vfib, 2 bicarbs, calcium x1 and Mag x 1. We attempted to intubate x 2 without success and continued to use OPA with bagging with bilateral breath sounds. was at present at the scene and was updated by myself during the code. Ambulance and staff were present and at 7.54am we transported him to the ED where I briefed Dr. Medellin and she took over. Of note, he was well this morning, per , had routine labs done early ~6.30am for a routine PCP appointment that is scheduled for next week. He otherwise he had no other prior complaints and was last seen walking to the [facility] building by fellow pharmacist close to 7am. MADELINE Perez MD Jan 25, 2021 08:06
--- OUTSIDE RECORDS SUMMARY | 2021-01-25 08:11 | CCD ---
Author Author [facility] Organization [facility] Address Unknown Phone Unavailable Care Team Providers Care Manufacturing Lead Name Role Phone Kim, Ha PA Unavailable [...] Unavailable Kim, Ha PA Unavailable Unavailable Kim, Ah PA Unavailable Unavailable Kim, Ha PA Unavailable [...] Unavailable Unavailable GEORGINA-KAMRYN, TALISHA DO Unavailable Unavailable GEORGINA-KAMYRN, TALISHA DO Unavailable Unavailable GEORGINA-KAMRYN, TALISHA DO [...] Blackburn, Isaak Tan MD, FACS Unavailable Unavailable Benietz Blackburn, Isaak Tan MD, FACS Unavailable Unavailable [...] Blackburn, Isaak Tan MD, FACS Unavailable Unavailable Benietz Blackburn, Isaak Tan MD, FACS Unavailable Unavailable [...] is protected by Article 27-F of the [place] Public Health law. If you continue you may have access to information: Regarding HIV / AIDS; Provided by facilities licensed or operated by the [place] Office of Mental Health; or Provided by the [place] Office for People With Developmental Disabilities. If such information is present, then the following [place] mandated warning applies: This information has been [...] law may result in a fine or correction sentence or both. A general authorization for the release of medical or other information is NOT sufficient authorization for further disc losure. Allergies and Adverse Reactions Type Description Substance Reaction Status Data Source(s ) Allergy to substance No Known Allergies No known allergies (situation ) MEDORA (Dominick Blackburn MD [facility]) Family History Family Member Name Family Member Gender Family Member Status Date o f Status Description Data Source(s) Unknown Male Problem [facility] ([facility] ) () Unknown Female Problem [facility] ([facility]) Unknown Female Problem [facility] ([facility]) Unknown Female Problem [facility] ([facility]) Unknown Male Problem [facility] Encounters Encounter Providers Location Date Indications Data Source(s ) Outpatient Attender: Ha GUAJARDO [facility] 11/10/2020 04:00:00 PM EDT [facility] ([facility]) Outpatient Attender: TALISHA HANSEN [facility] 08/09/2020 04:00:00 PM EDT [facility] ([facility]) Outpatient Attender: Ha GUAJARDO [facility] 04/20/2020 02:40:00 PM EST [facility] ([facility]) Outpatient Attender: TALISHA HANSEN DO [facility] 01/19/2020 03:40:00 PM EDT [facility] ([facility]) Outpatient<td ID="encounterTypeDescripti onID0">NEW PATIENT WITH REFERRAL</td><td>Dominick Gaspar MD, FACS</td><td>Dominick Gaspar MD [facility]</td><td>12/22/2019</td><td>9:12AM</td><td>10:04AM</td><td><content ID="encounterDiagnosisID0-0">Taking Medication For Diabetes Long-term Use of Insulin</content>, <content ID="encounterDiagnosisID0-1">Taking Medication For Diabetes Long-term Use of Oral Hypoglycemics</content>, <content ID="encounterDiagnosisID0-2">Dry Eye Syndrome</content>, <content ID="encounterDiagnosisID0-3">Vitreous Disorders Degeneration</content>, <content ID="encounterDiagnosisID0-4">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</content>, <content ID="encounterDiagnosisID0-5">Essential Hypertension</content>, <content ID="encounterDiagnosisID0-6">Retinopathy Hypertensive</content></td> Attender: Dominick Blackburn MD, FACS Dominick Gaspar MD [facility] 12/22/2019 09:12:00 AM EDT - 12/22/2019 10:04:00 AM ED T Retinopathy HypertensiveEssential Hypertension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Vitreous Disorders DegenerationDry Eye SyndromeTaking Medication For Diabetes Long-term Use of Oral HypoglycemicsTaking Medication For Diabetes Long-term Use of Insulin DREW (Dominick Blackburn MD [facility]) Retinopathy Hypertensive Essential Hypertension [...] Complete: YESThis Data wa s Submitted to [facility] Via [facility]. COVID-19 VACCINE Pfizer 04/12/2020 12:00:00 AM EST completed NYSIIS Vaccine Series Complete: YESThis Data wa s Submitted to [facility] Via [facility]. COVID-19 VACCINE Pfizer 03/22/2020 12:00:00 AM EST completed NYSIIS Vaccine Series Complete: NOThis Data was Submitted to [facility] Via [facility]. Medications Medication Brand Name Start Date Product [...] BY MOUTH EVERY EVENING SOLD: 01/16/2021 Shaheen Cristopher gs 320-25 mg 01/11/2021 12:00:00 AM EDT [...] Daily Value Multivitamin DREW (Dominick Blackburn MD [facility]) Magnesium 400 MG Oral Tablet Magnesium 400 MG Oral Tablet 12:00:00 AM EDT 1 active Magnesium GREENWA Y (Dominick Blackburn MD [facility]) Atorvastatin 10 mg Oral Tablet Atorvastatin 10 mg Oral Table t 12/22/2019 12:00:00 AM EDT 1 active Atorvast atin 10 mg DREW (Dominick Blackburn MD [facility]) Fexofenadine hydrochloride 180 MG Oral T ablet Fexofenadine HCl 180 MG Oral Tablet Fexofenadine HCl 180 MG Oral Tablet 12/22/2019 12:00:00 AM EDT 1 active fexofenadine hydrochloride 180 M G Oral Tablet DREW (Dominick Blackburn MD [facility]) [facility] Vitamin C 1000 MG Oral Tablet [facility] Vitamin C 1000 MG Oral Tablet 12/22/2019 12:00:00 AM EDT 1 active [facility] Yanique min C DREW (Dominick Blackburn MD [facility]) SB Low Dose ASA EC 81 MG Oral Tablet Delayed Release S B Low Dose ASA EC 81 MG Oral Tablet Delayed Release 12/22/2019 12:00:00 AM EDT 1 active SB Low Dose ASA EC DREW (Dominick Blackburn MD [facility]) Metformin hydrochloride 1000 MG Oral Tablet metFORMIN HCl 1000 MG Oral Tablet metFORMIN HCl 1000 MG Oral Tablet 12/22/2019 12:00:00 AM EDT 1 active metformin hydrochloride 1000 MG Oral Tablet DREW ( Dominick Blackburn MD [facility]) dapagliflozin 10 MG Oral Tablet [Farxiga] Farxiga 10 M G Oral Tablet Farxiga 10 MG Oral Tablet 12/22/2019 12:00:00 AM EDT 1 act cynthia dapagliflozin 10 MG Oral Tablet [Farxiga] DREW (Dominick Blackburn MD [facility]) Hydrochlorothiazide 25 MG / valsartan 32 0 MG Oral Tablet Valsartan- hydroCHLOROthiazide 320-25 MG Oral Tablet Valsartan-hydroCHLOROthiazide 320-25 MG Oral Tablet 12/22/2019 12:00:00 AM EDT 1 act cynthia hydrochlorothiazide 25 MG / valsartan 320 MG Oral Tablet DREW (Dominick Blackburn MD [facility]) Tresiba FlexTouch 200 UNIT/ML Subcutaneous Solution Pe n-injector Tresiba FlexTouch 200 UNIT/ML Subcutaneous Solution Pen-injector 12/22/2019 12:00:00 AM EDT 1 active 3 ML ins ulin degludec 200 UNT/ML Pen Injector [Tresiba] DREW (Dominick Blackburn MD [facility]) Ozempic (0.25 or 0.5 MG/DOSE) 2 MG/1.5ML Subcutaneous Solution Pen-injector Ozempic (0.25 or 0.5 MG/DOSE) 2 MG/1.5ML Subcutaneous Solution Pen-injector 12/22/2019 12:00:00 AM EDT active 0.25 MG, 0.5 MG Dose 1.5 ML semaglutide 1.34 MG/ML Pen Injector [Ozempic] DREW (Dominick Blackburn MD [facility]) Insurance Providers Payer name Policy type / Coverage type Policy ID Covered constitution party ID Covered constitution party's relationship to quinn Policy Quinn Plan Information [place]BS [place] PPO 302/307 [id number] SP [id number] BCBS OF [facility] 306/806 [id number] SP [id number] BCBS of [facility] Other 0 [id number] Self 0 [employer] [id number] Self [id number] [employer] [id number] Self VYA [id number] [employer] Maintenance [employer] (HMO) [id number] Self V [id number] [facility] [employer] [id number] Self [id number] [facility] [employer] Commercial [id number] Self VYA [id number] Y[employer] [id number] Self VYA [id number] [employer] [id number] Self VYA [id number] [facility] [employer] [id number] Self VYA [id number] [facility] [employer] [id number] Self VYA [id number] [facility] [employer] [id number] Self VYA [id number] [facility] [employer] [id number] Self VYA [id number] Y[employer] Commercial 173 Self BCBS OF [facility] 306/806 [id number] SP [id number] BS Of [facility] Commercial [id number] Self BCBS OF [facility] 306/806 [id number] SP [id number] Problems, Conditions, and Diagnoses Code Display Name Description Problem Type Effective Dates Data Source(s) 379.21 Vitreous Disorders Degeneration Vitreous Disorders Deg eneration Problem 12/22/2019 12:00:00 AM EDT DREW (Dominick Blackburn MD [facility]) 375.15 Dry Eye Syndrome Dry Eye Syndrome Problem 12/22/2019 12 :00:00 AM EDT DREW (Dominick Blackburn MD [facility]) [id number] Long-term current use of insulin (situat ion) Taking Medication For Diabetes Long-term Use of Insulin Problem 12/22/2019 12:00:00 AM EDT DREW (Dominick Blackburn MD [facility]) [id number] Taking Medication For Diabetes Long-term Use of Oral Hypoglycemics Taking Medication For Diabetes Long-term Use of Oral Hypoglycemics Finding 12/22/2019 12:00:00 AM EDT DREW (Dominick Blackburn MD [facility]) E11.3393 Type 2 Diabetes with Diabetic Retinopath y Moderate Nonproliferative 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 Problem 12/22/2019 12:00:00 AM EDT DREW (Dominick Blackburn MD [facility]) Surgeries/Procedures Procedure Description Date Indications Data Source(s) OFFICE OUTPATIENT VISIT 25 MINUTES 11/10/2020 12:00:00 AM EDT [facility]) OFFICE OUTPATIENT VISIT 25 MINUTES 08/09/2020 12:00:00 AM EDT [facility] ([facility]) Surgical / procedural history 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 Surgical / procedural history Repair Plyloric Stenosis as an infant 12/22/2019 12:00:00 AM EDT DREW (Dominick Blackburn MD [facility]) Medical Eye Exam Medical Eye Exam 12/22/2019 12:00:00 AM EDT DREW (Dominick Blackburn MD [facility]) Results ID Date Data Source [id number] 11/02/2020 06:57:00 AM EDT [facility] ([facility]) Name Value Range Interpretation Code Description Data Radha rce(s) Supporting Document(s) Hepatitis A virus IgG Ab [Units/volume] in Serum Laboratory test resu lt [facility] ([facility]) Hepatitis A virus IgM Ab [Units/volume] in Serum by Im munoassay Laboratory test result [facility] ([facility]) ID Date Data Source [id number] 11/02/2020 06:57:00 AM EDT [facility] ([facility]) Name Value Range Interpretation Code Description Data Radha rce(s) Supporting Document(s) Hepatitis C virus Ab [Units/volume] in Serum by Immuno assay Laboratory test result [facility] ([facility]) ID Date Data Source [id number] 11/02/2020 06:57:00 AM EDT [facility] ([facility]) Name Value Range Interpretation Code Description Data Radha rce(s) Supporting Document(s) Thyroid Stimulating Hormone 1.640 uIU/ML 0.358-3.740 Norm al (applies to non- numeric results) [facility] ([facility]) Free T4 0.94 ng/dL 0.76-1.46 Normal (applies to non-numeric resul ts) [facility] ([facility]) ID Date Data Source [id number] 11/02/2020 06:57:00 AM EDT [facility] ([facility]) Name Value Range Interpretation Code Description Data Radha rce(s) Supporting Document(s) Hemoglobin A1c 8.0 % Normal (applies to non-numeric r esults) [facility] ([facility]) <content>REFERENCE RANGES:</content><br/ ><content></content>
<content><=5.6% NORMAL</content>
<content>5.7-6.4% SUGGESTS IMPAIRED GLUCOSE METABOLISM/PREDIABETIC</content>
<content>>= 6.5% ABNORMAL</content>
<content></content> Estimated Average Glucose 183 mg/dL 60-110 Above high normal [facility] ([facility]) ID Date Data Source [id number] 11/02/2020 06:57:00 AM EDT [facility] ([facility]) Name Value Range Interpretation Code Description Data Radha rce(s) Supporting Document(s) Cholesterol Level 153 mg/dL Normal (applies to non-numeri c results) [facility] ([facility]) Triglycerides Level 329 mg/dL Above high normal [facility] ([facility]) LDL Cholesterol 50 mg/dL Normal (applies to non-numeric results) [facility] ([facility]) HDL Cholesterol 37 mg/dL Below low normal [facility] ([facility]) Non-HDL-C 116 mg/dL Normal (applies to non-numeric resul ts) [facility] ([facility]) Cholesterol Risk Ratio 4.135 Normal (applies to non-n umeric results) [facility] ([facility]) ID Date Data Source [id number] 11/02/2020 06:57:00 AM EDT [facility] ([facility]) Name Value Range Interpretation Code Description Data Radha rce(s) Supporting Document(s) Glucose, Fasting 179 mg/dL 70-100 Above high normal [facility] Blood Urea Nitrogen 19 mg/dL 7-18 Above high normal [facility] ([facility]) Creatinine For GFR 1.17 mg/dL 0.70-1.30 Normal (applies to non -numeric results) [facility] ([facility]) Sodium Level 141 meq/L 136-145 Normal (applies to non-numeric res ults) [facility] ([facility]) Glomerular Filtration Rate Laboratory test result Normal (applies to non- numeric results) [facility] ([facility]) <content>Units are mL/min/1.73 m2</content>
<content></content>
<content>Chronic Kidney Disease Staging per NKF:</content>
<content></content>
<content>Stage I & II GFR >=60 Normal to Mildly Decreased</content>
<content>Stage III GFR 30- 59 Moderately Decreased</content>
<content>Stage IV GFR 15-29 Severely Decreased</content>
<content>Stage V GFR <15 Very Little GFR Left</content>
<content>ESRD GFR <15 on LOSS PREVENTION LEADER</content>
<content></content> Potassium Serum 4.2 meq/L 3.5-5.1 Normal (applies to non-numeric results) [facility] ([facility]) Chloride Level 105 meq/L 98-107 Normal (applies to non-numeric r esults) [facility] ([facility]) Carbon Dioxide Level 27 meq/L 21-32 Normal (applies to non-num genevieve results) [facility] ([facility]) Anion Gap 9 meq/L 8-16 Normal (applies to non-numeric resul ts) [facility] ([facility]) Ast/Sgot 38 U/L 7-37 Above high normal [facility] Calcium Level 9.6 mg/dL 8.5-10.1 Normal (applies to non-numeric re sults) [facility] ([facility]) Alt/SGPT 86 U/L 12-78 Above high normal [facility] ([facility]) Alkaline Phosphatase 65 U/L 45-117 Normal (applies to non-num genevieve results) [facility] ([facility]) Total Protein 7.5 GM/DL 6.4-8.2 Normal (applies to non-numeric re sults) [facility] ([facility]) Bilirubin,Total 0.5 mg/dL 0.2-1.0 Normal (applies to non-numeric results) [facility] ([facility]) Albumin/Globulin Ratio 1.3 Normal (applies to non-n umeric results) [facility] ([facility]) Albumin 4.2 GM/DL 3.2-5.2 Normal (applies to non-numeric resul ts) [facility] ([facility]) ID Date Data Source [id number] 11/02/2020 06:57:00 AM EDT [facility] ([facility]) Name Value Range Interpretation Code Description Data Radha rce(s) Supporting Document(s) Parathyrin.intact [Mass/volume] in Serum or Plasma 33.1 pg/mL 18.5-88.0 Normal (applies to non-numeric results) [facility] ([facility]) ID Date Data Source [id number] 08/05/2020 06:29:00 AM EDT [facility] ([facility]) Name Value Range Interpretation Code Description Data Radha rce(s) Supporting Document(s) Thyroid Stimulating Hormone 1.290 uIU/ML 0.358-3.740 Norm al (applies to non- numeric results) [facility] ([facility]) Free T4 1.00 ng/dL 0.76-1.46 Normal (applies to non-numeric resul ts) [facility] ([facility]) ID Date Data Source [id number] 08/05/2020 06:29:00 AM EDT [facility] ([facility]) Name Value Range Interpretation Code Description Data Radha rce(s) Supporting Document(s) Triglycerides Level 276 mg/dL Above high normal [facility] ([facility]) Cholesterol Level 153 mg/dL Normal (applies to non-numeri c results) [facility] ([facility]) HDL Cholesterol 39 mg/dL Below low normal [facility] ([facility]) LDL Cholesterol 59 mg/dL Normal (applies to non-numeric results) [facility] ([facility]) Non-HDL-C 114 mg/dL Normal (applies to non-numeric resul ts) [facility] ([facility]) Cholesterol Risk Ratio 3.923 Normal (applies to non-n umeric results) [facility] ([facility]) ID Date Data Source [id number] 08/05/2020 06:29:00 AM EDT [facility] ([facility]) Name Value Range Interpretation Code Description Data Radha rce(s) Supporting Document(s) Glucose, Fasting 152 mg/dL 70-100 Above high normal [facility] ([facility]) Blood Urea Nitrogen 20 mg/dL 7-18 Above high normal [facility] ([facility]) Creatinine For GFR 1.08 mg/dL 0.70-1.30 Normal (applies to non -numeric results) [facility] ([facility]) Glomerular Filtration Rate Laboratory test result Normal (applies to non- numeric results) [facility] ([facility]) <content>Units are mL/min/1.73 m2</content>
<content></content>
<content>Chronic Kidney Disease Staging per NKF:</content>
<content></content>
<content>Stage I & II GFR >=60 Normal to Mildly Decreased</content>
<content>Stage III GFR 30- 59 Moderately Decreased</content>
<content>Stage IV GFR 15-29 Severely Decreased</content>
<content>Stage V GFR <15 Very Little GFR Left</content>
<content>ESRD GFR <15 on LOSS PREVENTION LEADER</content>
<content></content> Sodium Level 139 meq/L 136-145 Normal (applies to non-numeric res ults) [facility] ([facility]) Potassium Serum 4.3 meq/L 3.5-5.1 Normal (applies to non-numeric results) [facility] ([facility]) Chloride Level 105 meq/L 98-107 Normal (applies to non-numeric r esults) [facility] ([facility]) Carbon Dioxide Level 28 meq/L 21-32 Normal (applies to non-num genevieve results) [facility] ([facility]) Anion Gap 6 meq/L 8-16 Below low normal [facility] Calcium Level 10.3 mg/dL 8.5-10.1 Above high normal [facility] ([facility]) Ast/Sgot 47 U/L 7-37 Above high normal [facility] Alt/SGPT 104 U/L 12-78 Above high normal [facility] Alkaline Phosphatase 59 U/L 45-117 Normal (applies to non-num genevieve results) [facility] ([facility]) Bilirubin,Total 0.6 mg/dL 0.2-1.0 Normal (applies to non-numeric results) [facility] ([facility]) Total Protein 7.3 GM/DL 6.4-8.2 Normal (applies to non-numeric re sults) [facility] ([facility]) Albumin 4.2 GM/DL 3.2-5.2 Normal (applies to non-numeric resul ts) [facility] ([facility]) Albumin/Globulin Ratio 1.4 Normal (applies to non-n umeric results) [facility] ([facility]) ID Date Data Source [id number] 08/05/2020 06:29:00 AM EDT [facility] ([facility]) Name Value Range Interpretation Code Description Data Radha rce(s) Supporting Document(s) Hemoglobin A1c 7.7 % Normal (applies to non-numeric r esults) [facility] ([facility]) <content>REFERENCE RANGES:</content><br/ ><content></content>
<content><=5.6% NORMAL</content>
<content>5.7-6.4% SUGGESTS IMPAIRED GLUCOSE METABOLISM/PREDIABETIC</content>
<content>>= 6.5% ABNORMAL</content>
<content></content> Estimated Average Glucose 174 mg/dL 60-110 Above high normal [facility] ([facility]) ID Date Data Source [id number] 04/18/2020 06:32:00 AM EST [facility] ([facility]) Name Value Range Interpretation Code Description Data Radha rce(s) Supporting Document(s) Red Blood Count 5.39 10 4.30-6.10 Normal (applies to non-numeric results) [facility] ([facility]) White Blood Count 8.4 10 4.0-10.0 Normal (applies to non-numeri c results) [facility] ([facility]) Hematocrit 49.7 % 42.0-52.0 Normal (applies to non-numeric resul ts) [facility] ([facility]) Hemoglobin 16.3 g/dL 13.5-17.5 Normal (applies to non-numeric resul ts) [facility] ([facility]) Mean Corpuscular Hemoglobin 30.2 pg 27.0-33.0 Norm al (applies to non-numeric results) [facility] ([facility]) Mean Corpuscular Volume 92.2 fl 80.0-96.0 Normal ( applies to non-numeric results) [facility] ([facility]) Red Cell Distribution Width 12.5 % 11.5-14.5 Norm al (applies to non-numeric results) [facility] ([facility]) Mean Corpuscular HGB Conc 32.8 g/dL 32.0-36.5 Normal (applies to non-numeric results) [facility] ([facility]) Neutrophils % 50.7 % 36.0-66.0 Normal (applies to non-numeric re sults) [facility] ([facility]) Platelet Count, Automated 242 10 150-450 Normal (applies to non-numeric results) [facility] ([facility]) Lymph % 34.3 % 24.0-44.0 Normal (applies to non-numeric resul ts) [facility] ([facility]) Eos % 3.2 % 0.0-3.0 Above high normal [facility] ([facility]) [place] % 10.4 % 0.0-5.0 Above high normal [facility] ([facility]) Baso % 0.8 % 0.0-1.0 Normal (applies to non-numeric resul ts) [facility] ([facility]) Immature Granulocyte % 0.6 % 0-3.0 Normal (applies to non-n umeric results) [facility] ([facility]) Neutrophils # 4.2 10 1.5-8.5 Normal (applies to non-numeric re sults) [facility] ([facility]) Nucleated Red Blood Cell % 0.0 % 0-0 Normal (applies to n on-numeric results) [facility] ([facility]) [place] # 0.9 10 0.0-0.8 Above high normal [facility] ([facility]) Lymph # 2.9 10 1.5-5.0 Normal (applies to non-numeric resul ts) [facility] ([facility]) Eos # 0.3 10 0.0-0.5 Normal (applies to non-numeric resul ts) [facility] ([facility]) Baso # 0.1 10 0.0-0.2 Normal (applies to non-numeric resul ts) [facility] ([facility]) ID Date Data Source [id number] 04/18/2020 06:32:00 AM EST [facility] ([facility]) Name Value Range Interpretation Code Description Data Radha rce(s) Supporting Document(s) Glucose, Fasting 187 mg/dL 70-100 Above high normal M [facility] ([facility]) Creatinine For GFR 1.21 mg/dL 0.70-1.30 Normal (applies to non -numeric results) [facility] ([facility]) Blood Urea Nitrogen 23 mg/dL 7-18 Above high normal [facility] ([facility]) Glomerular Filtration Rate Laboratory test result Normal (applies to non- numeric results) [facility] ([facility]) <content>Units are mL/min/1.73 m2</content>
<content></content>
<content>Chronic Kidney Disease Staging per NKF:</content>
<content></content>
<content>Stage I & II GFR >=60 Normal to Mildly Decreased</content>
<content>Stage III GFR 30- 59 Moderately Decreased</content>
<content>Stage IV GFR 15-29 Severely Decreased</content>
<content>Stage V GFR <15 Very Little GFR Left</content>
<content>ESRD GFR <15 on LOSS PREVENTION LEADER</content>
<content></content> Sodium Level 138 meq/L 136-145 Normal (applies to non-numeric res ults) [facility]) Potassium Serum 4.3 meq/L 3.5-5.1 Normal (applies to non-numeric results) [facility] ([facility]) Chloride Level 104 meq/L 98-107 Normal (applies to non-numeric r esults) [facility] ([facility]) Carbon Dioxide Level 26 meq/L 21-32 Normal (applies to non-num genevieve results) [facility] ([facility]) Anion Gap 8 meq/L 8-16 Normal (applies to non-numeric resul ts) [facility] ([facility]) Ast/Sgot 36 U/L 7-37 Normal (applies to non-numeric resul ts) [facility] ([facility]) Calcium Level 9.9 mg/dL 8.5-10.1 Normal (applies to non-numeric re sults) [facility] ([facility]) Alkaline Phosphatase 65 U/L 45-117 Normal (applies to non-num genevieve results) [facility] ([facility]) Alt/SGPT 98 U/L 12-78 Above high normal [facility] ([facility]) Total Protein 7.2 GM/DL 6.4-8.2 Normal (applies to non-numeric re sults) [facility] ([facility]) Bilirubin,Total 0.5 mg/dL 0.2-1.0 Normal (applies to non-numeric results) [facility] ([facility]) Albumin 4.0 GM/DL 3.2-5.2 Normal (applies to non-numeric resul ts) [facility] ([facility]) Albumin/Globulin Ratio 1.3 Normal (applies to non-n umeric results) [facility] ([facility]) ID Date Data Source [id number] 04/18/2020 06:32:00 AM EST [facility] ([facility]) Name Value Range Interpretation Code Description Data Radha rce(s) Supporting Document(s) Estimated Average Glucose 206 mg/dL 60-110 Above high [facility] Hemoglobin A1c 8.8 % Normal (applies to non-numeric r esults) [facility] ([facility]) <content>REFERENCE RANGES:</content><br/ ><content></content>
<content><=5.6% NORMAL</content>
<content>5.7-6.4% SUGGESTS IMPAIRED GLUCOSE METABOLISM/PREDIABETIC</content>
<content>>= 6.5% ABNORMAL</content>
<content></content> ID Date Data Source [id number] 01/13/2020 06:37:00 AM EDT [facility] ([facility]) Name Value Range Interpretation Code Description Data Radha rce(s) Supporting Document(s) Hemoglobin A1c 7.8 % Normal (applies to non-numeric r esults) [facility] ([facility]) <content>REFERENCE RANGES:</content><br/ ><content></content>
<content><=5.6% NORMAL</content>
<content>5.7-6.4% SUGGESTS IMPAIRED GLUCOSE METABOLISM/PREDIABETIC</content>
<content>>= 6.5% ABNORMAL</content>
<content></content> Estimated Average Glucose 177 mg/dL 60-110 Above high normal [facility] ([facility]) ID Date Data Source [id number] 01/13/2020 06:37:00 AM EDT [facility] ([facility]) Name Value Range Interpretation Code Description Data Radha rce(s) Supporting Document(s) Glucose, Fasting 138 mg/dL 70-100 Above high normal [facility]) Glomerular Filtration Rate Laboratory test result Normal (applies to non- numeric results) [facility] ([facility]) <content>Units are mL/min/1.73 m2</content>
<content></content>
<content>Chronic Kidney Disease Staging per NKF:</content>
<content></content>
<content>Stage I & II GFR >=60 Normal to Mildly Decreased</content>
<content>Stage III GFR 30- 59 Moderately Decreased</content>
<content>Stage IV GFR 15-29 Severely Decreased</content>
<content>Stage V GFR <15 Very Little GFR Left</content>
<content>ESRD GFR <15 on LOSS PREVENTION LEADER</content>
<content></content> Blood Urea Nitrogen 19 mg/dL 7-18 Above high normal [facility] ([facility]) Creatinine For GFR 1.15 mg/dL 0.70-1.30 Normal (applies to non -numeric results) [facility] ([facility]) Potassium Serum 4.3 meq/L 3.5-5.1 Normal (applies to non-numeric results) [facility] ([facility]) Sodium Level 139 meq/L 136-145 Normal (applies to non-numeric res ults) [facility] ([facility]) Chloride Level 104 meq/L 98-107 Normal (applies to non-numeric r esults) [facility] ([facility]) Carbon Dioxide Level 26 meq/L 21-32 Normal (applies to non-num genevieve results) [facility] ([facility]) Calcium Level 9.3 mg/dL 8.5-10.1 Normal (applies to non-numeric re sults) [facility] ([facility]) Anion Gap 9 meq/L 8-16 Normal (applies to non-numeric resul ts) [facility] ([facility]) Procedure Social History Code Duration Value Status Description Data Source(s ) Smoking 11/10/2020 12:00:00 AM EDT Patient has never smoked co mpleted Patient has never smoked [facility] ([facility]) Smoking 05/19/2020 12:00:00 AM EST Patient has never smoked co mpleted Patient has never smoked [facility] ([facility], ) Smoking 12/22/2019 10:29:12 AM EDT Never smoked tobacco (meghani flex) completed Never smoked tobacco (finding) DREW (Dominick Blackburn MD [facility]) Vital Signs ID Date Data Source [id number] Name Value Range Interpretation Code Description Data Source(s) Systolic blood pressure 142 mm[Hg] 142 mm[Hg] M [facility] ([facility]) Diastolic blood pressure 88 mm[Hg] 88 mm[Hg] [facility] ([facility]) Body height 71.5 [in_i] 71.5 [in_i] [facility] ([facility]) 5'11.50" Body weight 289.00 [lb_av] 289.00 [lb_av] [facility] T ([facility]) Body mass index (BMI) [Ratio] 39.7 kg/m2 39.7 k g/m2 [facility] ([facility]) Heart rate 84 /min 84 /min [facility] ([facility]) Respiratory rate 18 /min 18 /min [facility] Body temperature 97.7 [degF] 97.7 [degF] [facility] ([facility]) Oxygen saturation in Arterial blood by Pulse oximetry 98 % 98 % [facility] ([facility]) [place] body weight 172 [lb_av] 172 [lb_av] [facility] T ([facility]) Body weight 291.25 [lb_av] 291.25 [lb_av] [facility] T ([facility]) Systolic blood pressure 130 mm[Hg] 130 mm[Hg] M [facility] ([facility]) Diastolic blood pressure 78 mm[Hg] 78 mm[Hg] [facility] ([facility]) Body height 71.5 [in_i] 71.5 [in_i] [facility] ([facility]) 5'11.50" Body mass index (BMI) [Ratio] 40.1 kg/m2 40.1 k g/m2 [facility] ([facility]) Heart rate 92 /min 92 /min [facility] ([facility]) Respiratory rate 18 /min 18 /min [facility] ( [facility]) Body temperature 97.4 [degF] 97.4 [degF] [facility] ([facility]) Oxygen saturation in Arterial blood by Pulse oximetry 98 % 98 % [facility] ([facility]) [place] body weight 172 [lb_av] 172 [lb_av] [facility] T ([facility]) Systolic blood pressure 120 mm[Hg] 120 mm[Hg] [facility] ([facility]) Diastolic blood pressure 80 mm[Hg] 80 mm[Hg] [facility] ([facility]) Heart rate 94 /min 94 /min [facility] ([facility]) Oxygen saturation in Arterial blood by Pulse oximetry 98 % 98 % [facility] ([facility]) Body temperature 97.5 [degF] 97.5 [degF] [facility] ([facility]) Body height 71 [in_i] 71 [in_i] [facility] ([facility]) 5'11" Body weight 294.00 [lb_av] 294.00 [lb_av] [facility] Body mass index (BMI) [Ratio] 41.0 kg/m2 41.0 k g/m2 [facility] ([facility]) [place] body weight 172 [lb_av] 172 [lb_av] [facility] Body weight 133.358 kg 133.358 kg [facility] ([facility]) Body surface area Derived from formula 2.48 m2 2.48 m2 [facility] ([facility]) Systolic blood pressure 124 mm[Hg] 124 mm[Hg] [facility] Diastolic blood pressure 76 mm[Hg] 76 mm[Hg] [facility] ([facility]) Body height 71.5 [in_i] 71.5 [in_i] [facility] ([facility] " Body weight 295.38 [lb_av] 295.38 [lb_av] [facility] T ([facility]) Body mass index (BMI) [Ratio] 40.6 kg/m2 40.6 k g/m2 [facility] ([facility]) Heart rate 96 /min 96 /min [facility] ([facility]) Respiratory rate 18 /min 18 /min [facility] ( [facility]) Body temperature 97.1 [degF] 97.1 [degF] [facility] ([facility]) Oxygen saturation in Arterial blood by Pulse oximetry 97 % 97 % [facility] ([facility]) [place] body weight 172 [lb_av] 172 [lb_av] [facility] T ([facility]) Body height 71.5 [in_i] 71.5 [in_i] [facility] ([facility]) " Systolic blood pressure 112 mm[Hg] 112 mm[Hg] M [facility] ([facility]) Diastolic blood pressure 70 mm[Hg] 70 mm[Hg] [facility] ([facility]) Body weight 295.50 [lb_av] 295.50 [lb_av] [facility] T ([facility]) Body mass index (BMI) [Ratio] 40.6 kg/m2 40.6 k g/m2 [facility] ([facility]) Heart rate 95 /min 95 /min [facility] ([facility]) Respiratory rate 16 /min 16 /min [facility] ( [facility]) Body temperature 97.1 [degF] 97.1 [degF] [facility] ([facility]) Oxygen saturation in Arterial blood by Pulse oximetry 99 % 99 % [facility] ([facility]) [place] body weight 172 [lb_av] 172 [lb_av] [facility] T ([facility])
[2021-01-25 09:03] LABS: RSV AMPLIFICATION NEGATIVE (NEGATIVE)
[2021-01-25 11:40] LABS: HEPATITIS B SURFACE ANTIGEN NEGATIVE (NEGATIVE); HEPATITIS C VIRUS ABY INDEX < 0.0 INDEX (<0.8); HIV SCREEN CENTAUR SOURCE NEGATIVE (NEGATIVE)
== END 2021-01-25 11:18 | disposition expired ==
LOC: M ED 07:56
DX: I46.9 Cardiac arrest, cause unspecified (principal); E11.9 Type 2 diabetes mellitus without complications; N18.30 Chronic kidney disease, stage 3 unspecified; E78.5 Hyperlipidemia, unspecified; E66.01 Morbid (severe) obesity due to excess calories; Z79.899 Other long term (current) drug therapy

== ENCOUNTER → 2021-01-25 | Outpatient (CLI) | payer BC ==
[2021-01-25 07:57] LABS: BLOOD UREA NITROGEN 22 MG/DL (7-18); CALCIUM LEVEL 9.8 MG/DL (8.5-10.1); CARBON DIOXIDE LEVEL 28 MEQ/L (21-32); CHLORIDE LEVEL 106 MEQ/L (98-107); CREATININE FOR GFR 1.19 MG/DL (0.70-1.30); GLOMERULAR FILTRATION RATE > 60.0 (>60); GLUCOSE, FASTING 169 MG/DL (70-100); POTASSIUM SERUM 4.2 MEQ/L (3.5-5.1); SODIUM LEVEL 140 MEQ/L (136-145)
[2021-01-25 08:08] LABS: CREATININE, URINE 75.1 MG/DL; MALB URINE SIEMENS 10.1 MG/L; MAU/CREAT RATIO 13.4 MCG/MG (0.0-30.0)
[2021-01-25 08:49] LABS: HEMOGLOBIN A1c 8.3 %
== END ==
LOC: M LAB 06:29
PROVIDERS: ATTEND Physician Assistant
DX: E11.40 Type 2 diabetes mellitus with diabetic neuropathy, unspecified (principal)